=== PATIENT | female | born 1950 | race Caucasian/White ===

== ENCOUNTER 2019-03-01 07:53 | Inpatient (IN) | payer MEDICARE ==
[2019-03-01] VITALS (33 sets, daily range): BP systolic 88–139; BP diastolic 39–109; PULSE 93–120; RESP 16–29; Ht 162.6 cm; Wt 83.4 kg
[~2019-03-01] VITALS: Ht 162.6 cm; Wt 83.4 kg
[2019-03-01] MEDS ORDERED: SODIUM CHLORIDE 0.9% 1L BAG IV* STA (07:59)
--- NOTE | 2019-03-01 08:00 | ERD ---
ER Documentation Chief Complaint Chief Complaint Shortness of breath HPI 68-year-old female history of COPD, rheumatoid arthritis and recent colon resection and colostomy for perforated sigmoid diverticulitis transferred to the ED via rescue ambulance from custodial facility for evaluation of shortness of breath. Patient was recently diagnosed with urinary tract infection and started on antibiotics which she had an allergic reaction. This morning she began complaining of worsening shortness of breath was transferred to the ED for further evaluation. Patient continues to complain of dysuria and polyuria. Denies chest pain or palpitations. Denies abdominal pain, nausea or vomiting. Generalized weakness but no focal weakness or numbness. No headache or neck pain. Denies fevers or chills. ROS All systems reviewed and are negative except as per history of present illness. Medications Home Meds Reported Medications Diclofenac Sodium* (Voltaren* Gel) 1% -100 Gm Gel, 4 GM TOP TID, #1 TUB APPLY TO RIGHT AND LEFT KNEE 03/01/19 Venlafaxine Hcl* (Effexor XR*) 75 Mg Tab.er.24, 75 MG PO DAILY, TAB.SA 03/01/19 Cyclobenzaprine Hcl* (Cyclobenzaprine Hcl*) 10 Mg Tablet, 10 MG PO BID PRN for MUSCLE SPASMS, #60 TAB 03/01/19 Famotidine* (Famotidine*) 20 Mg Tablet, 20 MG PO BID, #60 TAB 03/01/19 Lactobacillus Combo No.11 (Probiotic) 1 Each Cap.sprink, 1 CAP PO DAILY, CAP 03/01/19 Amphet Vdf-Jlbptn-C-Amphet (Adderall) 5 Mg Tablet, 5 MG PO DAILY, TAB MAY TAKE ANOTHE 5MG PRN PER PT REQUEST 03/01/19 Acetaminophen* (Acetaminophen*) 650 Mg Tablet, 650 MG PO Q4 PRN for PAIN LEVEL 5-7, #30 TAB 03/01/19 Tramadol Hcl* (Ultram*) 50 Mg Tablet, 50 MG PO Q6H PRN for PAIN LEVEL 5-7, TAB 03/01/19 Hydrocodone/Acetaminophen (Orient 5-325 Tablet) 1 Each Tablet, 1 EACH PO Q4 PRN for PAIN LEVEL 8-10, TAB 03/01/19 Magnesium Hydroxide* (Milk Of Magnesia*) 400 Mg/5 Ml Oral.susp, 30 ML PO DAILY PRN for CONSTIPATION, ML 03/01/19 Alprazolam* (Xanax*) 0.5 Mg Tab, 0.5 MG PO Q8H PRN for ANXIETY, TAB 03/01/19 Sennosides* (Senna Lax*) 8.6 Mg Tablet, 1 TAB PO DAILY, TAB 03/01/19 Heparin Sodium,Porcine/Pf (HEPARIN SOD 5,000 UNIT/ 0.5 ML) 5,000 Unit/0.5 Ml Vial, 5000 UNIT IJ Q8, VIAL 03/01/19 Oxycodone Hcl* (Oxycontin*) 20 Mg Tab.er.12h, 20 MG PO Q8 PRN for PAIN, TAB 03/01/19 Tolterodine Tartrate* (Detrol LA*) 4 Mg Cap.sr.24h, 4 MG PO DAILY, #30 CAP 03/01/19 Prednisone* (Prednisone*) 10 Mg Tab, 15 MG PO DAILY, TAB 03/01/19 Albuterol Sulfate* (Proair HFA*) 8.5 Gm Hfa.aer.ad, 2 PUFF INH Q4H PRN for W HEEZING AND SOB, #1 INHALER 03/01/19 Docusate Sodium* (Colace*) 100 Mg Capsule, 100 MG PO DAILY, #30 CAP 03/01/19 Allergies Allergies: Coded Allergies: sulfasalazine (Verified Allergy, Severe, 03/01/19) PMhx/Soc Reviewed in chart as per HPI History of Surgery: Yes Anesthesia Reaction: No (Colon resection for perforated diverticulitis) Hx Neurological Disorder: No Hx Respiratory Disorders: Yes (COPD) Hx Cardiac Disorders: Yes Hx Psychiatric Problems: No (Hypertension) Hx Miscellaneous Medical Probl: Yes (Rheumatoid arthritis on chronic immunosuppression) Hx Alcohol Use: No Hx Substance Use: No Hx Tobacco Use: No FmHx No family history relevant to presenting complaint Physical Exam Vitals Temp: 99.1. Pulse: 132. Respirations: 28. Blood pressure 118/97. O2 saturation 100% on 2 L. Physical Exam Const: Severe distress. Ill-appearing. Head: Atraumatic Eyes: Normal Conjunctiva ENT: Normal External Ears, Nose and Mouth. Neck: Full range of motion. No meningismus. No JVD Resp: Breath sounds mildly diminished at the bases but clear to auscultation bilaterally without rales rhonchi or wheezes Cardio: Regular rate and rhythm, no murmurs Abd: Soft, obese, non tender, non distended. No rebound or guarding. Normal bowel sounds. Colostomy site clean without erythema or drainage. Mucosa pink. Skin: Mottled on the extremities. Back: No midline or flank tenderness Ext: No cyanosis, or edema Neur: Awake and alert. Cranial nerves are grossly intact. No focal deficit. Psych: Normal Mood and Affect Results 24 hrs Laboratory Tests Test 03/01/19 08:19 03/01/19 08:26 03/01/19 08:45 03/01/19 11:24 POC Venous Lactate 6.7 mmol/L 3.7 mmol/L White Blood Count 13.9 10^3/ul Red Blood Count 6.77 10^6/ul Hemoglobin 17.6 g/dl Hematocrit 58.7 % Mean Corpuscular 86.7 fl Volume Mean Corpuscular 26.0 pg Hemoglobin Mean Corpuscular 30.0 g/dl Hemoglobin Concent Red Cell 20.1 % Distribution Width Platelet Count 369 10^3/UL Mean Platelet 9.7 fl Volume Immature 3.000 % Granulocytes % Neutrophils % % Segmented 44 % Neutrophils % (Manual) Band Neutrophils % 46 % (Manual) Lymphocytes % % Lymphocytes % 2 % (Manual) Monocytes % % Monocytes % 4 % (Manual) Eosinophils % % Eosinophils % 3 % (Manual) Basophils % % Metamyelocytes % 1 % (manual) Nucleated Red Blood 0.3 /100WBC Cells % Immature 0.420 10^3/ul Granulocytes # Neutrophils # 10^3/ul Neutrophils # 7.0 10^3/ul (Manual) Band Neutrophils # 6.3 10^3/ul Lymphocytes 0.2 10^3/ul (Manual) Lymphocytes # 10^3/ul Monocytes # 10^3/ul Monocytes # 0.5 10^3/ul (Manual) Eosinophils # 10^3/ul Basophils # 10^3/ul Metamyelocytes # 0.1 10^3/ul Nucleated Red Blood 10^3/ul Cells # Platelet Estimate NORMAL Giant Platelets 2 % Polychromasia 1+ Poikilocytosis 2+ Anisocytosis 1+ Prothrombin Time 14.1 Sec Prothrombin Time 1.1 Ratio INR International 1.08 Normalized Ratio Activated 34.2 Sec Partial Thromboplas t Time Sodium Level 136 mmol/L Potassium Level 4.7 mmol/L Chloride Level 95 mmol/L Carbon Dioxide 22 mmol/L Level Anion Gap 19 Blood Urea Nitrogen 19 mg/dl Creatinine 1.33 mg/dl Est Glomerular 40 mL/min Filtrat Rate mL/min Glucose Level 116 mg/dl Calcium Level 10.1 mg/dl Total Bilirubin 0.3 mg/dl Direct Bilirubin 0.00 mg/dl Indirect Bilirubin 0.3 mg/dl Aspartate Amino 293 IU/L Transf (AST/SGOT) Alanine 192 IU/L Aminotransferase (A LT/SGPT) Alkaline 155 IU/L Phosphatase Troponin I 0.031 ng/ml Total Protein 7.8 g/dl Albumin 4.2 g/dl Globulin 3.60 g/dl Albumin/Globulin 1.16 Ratio Urine Color OTTONIEL Urine Clarity CLOUDY Urine pH 5.0 Urine Specific 1.026 [place] Urine Ketones TRACE mg/dL Urine Nitrite NEGATIVE mg/dL Urine Bilirubin NEGATIVE mg/dL Urine Urobilinogen 1+ mg/dL Urine Leukocyte 1+ Diana/ul Esterase Urine Microscopic 25 /HPF RBC Urine Microscopic 16 /HPF WBC Urine Squamous MODERATE /HPF Epithelial Cells Urine Bacteria FEW /HPF Urine Hemoglobin 1+ mg/dL Urine Glucose NEGATIVE mg/dL Urine Total Protein NEGATIVE mg/dl Current Medications Medications Dose Sig/Maksim Start Time Status Last (Trade) Ordered Route PRN Stop Time Admin Dose Reason Admin Sodium 2,550 ml BOLUS OVER 2 03/01/19 DC 03/01/19 Chloride HOURS STAT 07:59 03/01/19 08:22 (NS) IV* 08:01 Ondansetron 4 mg ONCE STAT 03/01/19 DC 03/01/19 HCl (Zofran IV 08:24 03/01/19 08:30 Inj) 08:27 Lidocaine 5 ml ONCE ONCE 03/01/19 DC (Xylocaine SC 09:30 03/01/19 1% (Mpf)) 09:31 Vancomycin 250 ml @ ONCE ONCE 03/01/19 DC 03/01/19 HCl 125 mls/hr IVPB 10:30 03/01/19 10:34 12:29 Cefepime HCl 50 ml @ ONCE STAT 03/01/19 DC 03/01/19 100 mls/hr IVPB 10:06 03/01/19 10:18 10:35 250 ml @ ONCE STAT 03/01/19 DC 03/01/19 Norepinephrin 7.5 mls/hr IV 11:24 03/02/19 11:31 e 17:37 Fentanyl 25 mcg ONCE ONCE 03/01/19 DC 03/01/19 (Sublimaze) IV 12:00 03/01/19 12:13 12:01 50 ml @ Q12H IVPB 03/01/19 DC 03/05/19 Meropenem/Sod 100 mls/hr 14:00 03/05/19 15:56 ium Chloride 18:15 Vancomycin VANCOMYCIN PER 03/01/19 DC HCl (Vanco PER PHARMACY PROTOCOL XX 12:30 03/03/19 Iv Per 07:42 Pharmacy) IV Flush 3 ml PER 03/01/19 DC (NS 3 ml) PROTOCOL IV 12:30 03/05/19 18:15 IV Flush 10 ml PRN PRN 03/01/19 DC (NS 10 ml) IV FLUSH 13:00 03/05/19 LINE 18:15 50 mg Q8 IV 03/01/19 DC 03/03/19 Hydrocortison 14:00 03/03/19 05:44 e 07:39 (Solu-Cortef) 50 mg ONCE ONCE 03/01/19 DC 03/01/19 Hydrocortison IV 13:00 03/01/19 13:03 e 13:01 (Solu-Cortef) 650 mg Q4 PRN PO 03/01/19 DC Acetaminophen PAIN LEVEL 13:00 03/05/19 (Tylenol 5-7 18:15 Tab) Famotidine 20 mg DAILY PO 03/01/19 DC 03/05/19 (Pepcid) 14:00 03/05/19 08:38 18:15 Magnesium 30 ml DAILY PRN 03/01/19 DC Hydroxide PO 13:00 03/05/19 (Milk Of Mag) CONSTIPATION 18:15 Oxycodone 20 mg Q8 PRN PO 03/01/19 DC 03/04/19 HCl SEVERE PAIN 13:00 03/04/19 03:11 (Oxycontin) 7-10 10:34 Sodium 1,000 ml @ Q10H IV 03/01/19 DC 03/03/19 Chloride 100 mls/hr 12:52 03/03/19 05:00 07:41 Oxycodone/ 1 tab Q6H PRN 03/01/19 DC 03/03/19 Acetaminophen PO .MOD PAIN 13:00 03/04/19 05:00 (Percocet 4-6 10:32 (5/ 325)) Procedures/MDM DOCUMENTS REVIEWED: ED nurse, significant prior hospital records LAB INTERPRETATION: CBC significant for leukocytosis of 13.9 with 6.3% band. Chemistry significant for elevated BUN/creatinine but no significant elect light abnormalities. Transaminitis and elevated alk phosphatase. EKG: Time: 08. Sinus tachycardia. Ventricular rate 132. Normal MI QRS. No ectopy. Left axis deviation. No acute ST segment elevation or depression. My Interpretation IMAGING: Chest AP portable: Cardiac silhouette is normal. Elevated right hemidiaphragm but the costophrenic angles are clear. No effusions or infiltrates. No abnormalities of the bony thorax. MEDICAL DECISION MAKIN-year-old female history of COPD, rheumatoid arthritis and perforated sigmoid diverticulitis transferred to the ED via rescue ambulance from custodial facility for evaluation of shortness of breath. Patient's infectious symptoms have not stabilized, and the patient is at risk of rapid decompensation. The patient will be admitted to the intensive care unit for careful hydration, antibiotic therapy, infectious source control, further evaluation and management. Severe Sepsis Criteria: Infectious source: UTI End organ damage indicated by: Lactate > 2.0 mmol/L Hypotension (SBP < 90 or >40 mmHG drop or MAP < 65) Sepsis Management: Time of recognition of severe sepsis: : Within 3 hours of recognition: Blood cultures x 2 before broad-spectrum antibiotics: Yes 30 ml/kg NS bolus Completed Initial lactate 6.7 Repeat lactate 3.7 Septic Shock Assessment: Any lactic acid > 4.0 yes Persistent hypotension (SBP < 90 or 40 mmHg drop, MAP < 65) despite 30 mL/kg IV fluid bolus: yes A focused sepsis perfusion/reperfusion reassessment examination was performed post 30ml/kg bolus @ 11:10: Temp 98.7, BP 80/49, HR 110, RR 26, Pox 100% on 2 L nasal cannula Persistent Hypotension Treatment: Comfort care No Hypotension caused by: pt. baseline, med-induced, erroneous value, condition other than infection: No Refusal by patient/decision maker for: blood draw, IVF, Antibiotics, Pressors : No Central line: PICC line placed Vasopressor started: Norepinephrine I considered further perfusion assessment with CVP measurement, SCVO2, bedside ultrasound volume assessment, passive leg raise, trial of further fluid bolus and proceeded with further fluid bolus. Accepting Care Team Current data and ongoing care discussed. Time: 11:50 Admitting Physician: Dr. Haas Critical Care Time: 45 minutes Treatments/Evaluations: Close monitoring and treatment of unstable vital signs, cardiorespiratory,and neurologic status, while maintaining tight balance of fluid, respiratory and cardiac interventions. This includes the administration of emergency fluid management while maintaining close respiratory support as well as the provision of immediate and broad-spectrum antibiotic therapy, while performing a simultaneous assessment for possible sources in order to direct targeted therapy. This time includes discussing the case with the patient and the patients family. This time also includes the consideration for invasive and chemical support to prevent cardiopulmonary collapse. This time does not include all procedures stated elsewhere in this record. This time also includes reviewing old records, labs and radiological studies. This time includes examining and re-examining the patient. Additionally, this time also includes arranging care with admitting and consulting physicians. Counseled patient regarding diagnosis, diagnostic results and plan for admission. Departure Diagnosis: Primary Impression: Shortness of breath Additional Impressions: Septic shock SIRS (systemic inflammatory response syndrome) S/P colostomy Status post colon resection Urinary tract infection Urinary tract infection type: site unspecified Hematuria presence: without hematuria Qualified Codes: N39.0 - Urinary tract infection, site not specified Condition: Critical MARTIR RAHMAN MD March 01, 2019 08:00
[2019-03-01] MEDS ORDERED: ONDANSETRON 4 MG INJ IV STA (08:24)
[2019-03-01] MEDS ORDERED: DOCU-144 PO (09:25)
[2019-03-01] MEDS ORDERED: ALBU8.5H8 INH (09:25)
[2019-03-01] MEDS ORDERED: PRED10TA PO (09:26)
[2019-03-01] MEDS ORDERED: TOLT4CAP PO (09:26)
[2019-03-01] MEDS ORDERED: OXYC20TA41 PO (09:27)
[2019-03-01] MEDS ORDERED: ALPR0.5T PO (09:28)
[2019-03-01] MEDS ORDERED: HEPA500021 IJ (09:28)
[2019-03-01] MEDS ORDERED: SENN-120 PO (09:28)
[2019-03-01] MEDS ORDERED: MAGN400O19 PO (09:29)
[2019-03-01] MEDS ORDERED: LIDOCAINE 1% (MPF) 5 ML VIAL SC ONE (09:30)
[2019-03-01] MEDS ORDERED: TRAM50TA PO (09:30)
[2019-03-01] MEDS ORDERED: HYDR-4011 PO (09:30)
[2019-03-01] MEDS ORDERED: ACET-2047 PO (09:31)
[2019-03-01] MEDS ORDERED: LACT1CAP56 PO (09:33)
[2019-03-01] MEDS ORDERED: DEXT5TAB17 PO (09:33)
[2019-03-01] MEDS ORDERED: CYCL10TA7 PO (09:34)
[2019-03-01] MEDS ORDERED: FAMO20TA18 PO (09:34)
[2019-03-01] MEDS ORDERED: VENL75TA2 PO (09:35)
[2019-03-01] MEDS ORDERED: DICL100G37 TOP (09:36)
[2019-03-01] MEDS ORDERED: CEFEPIME 2GM/50 ML (PMX) 50 ML IVPB STA (10:06)
[2019-03-01] MEDS ORDERED: VANCOMYCIN 1 GM (PMX) 250 ML IVPB ONE (10:30)
[2019-03-01] MEDS ORDERED: NORepinephrine 8MG/250 ML (PMX 250 ML IV STA (11:24)
[2019-03-01] MEDS ORDERED: FENTAnyl 50 MCG/ML VIAL IV ONE (12:00)
[2019-03-01] MEDS ORDERED: NACL 0.9% 3 ML SYG IV SCH (12:30)
[2019-03-01] MEDS ORDERED: VANCOMYCIN IV PER PHARMACY XX SCH (12:30)
[2019-03-01] MEDS ORDERED: ACETAMINOPHEN 325 MG TAB PO PRN (13:00)
[2019-03-01] MEDS ORDERED: MAGNESIUM HYDROXIDE 30ML CUP PO PRN (13:00)
[2019-03-01] MEDS ORDERED: HYDROCORTISONE 100 MG INJ IV ONE (13:00)
[2019-03-01] MEDS: SOD CHLORIDE 0.9% 1,000 ML IV SCH ×2 (13:03→22:52)
--- NOTE | 2019-03-01 13:03 | HP ---
Date/Time of Note Date/Time of Note DATE: 03/01/19 TIME: 12:57 Assessment/Plan VTE Prophylaxis SCD applied (from Nsg): Yes Pharmacological prophylaxis: heparin Lines/Catheters IV Catheter Type (from Nrsg): PICC Line Central line still needed: Yes Urinary Cath still in place: Yes Reason Cath still needed: urinary retention Assessment/Plan Hospital Course This is a 68-year-old female with a history of rheumatoid arthritis on corticosteroids and immunosuppression and recent surgery for perforated bowel with colostomy as well as recent UTI who presents with septic shock Septic shock: -Continue vasopressors to map greater than 65 -Fluids as needed -Broad-spectrum antibiotics with vancomycin and meropenem -Trend lactic acid levels -CT abdomen pelvis to evaluate for source. I presume this is a urinary tract infection in the meantime Rheumatoid arthritis: -Stress dose steroids given chronic prednisone -Pain control PRN -We will hold methotrexate Acute kidney injury: -Perhaps prerenal versus ATN we will trend this with fluids Transaminitis: -She does not have any right upper quadrant symptoms. Perhaps this is shock liver. Regardless we will see on CT abdomen pelvis whether there is biliary tract pathology present dispo: to ICU CC time 35 minutes Result Diagram: 03/01/19 0826 03/01/19 0826 Results 24hrs Laboratory Tests Test 03/01/19 08:19 03/01/19 08:26 03/01/19 08:45 03/01/19 11:24 POC Venous Lactate 6.7 *H 3.7 *H White Blood Count 13.9 H Red Blood Count 6.77 H Hemoglobin 17.6 H Hematocrit 58.7 H Mean Corpuscular Volume 86.7 Mean Corpuscular 26.0 L Hemoglobin Mean Corpuscular 30.0 L Hemoglobin Concent Red Cell Distribution 20.1 H Width Platelet Count 369 Mean Platelet Volume 9.7 Immature Granulocytes % 3.000 H Neutrophils % Segmented Neutrophils 44 % (Manual) Band Neutrophils % 46 H (Manual) Lymphocytes % Lymphocytes % (Manual) 2 L Monocytes % Monocytes % (Manual) 4 Eosinophils % Eosinophils % (Manual) 3 Basophils % Metamyelocytes % 1 H (manual) Nucleated Red Blood 0.3 H Cells % Immature Granulocytes # 0.420 H Neutrophils # Neutrophils # (Manual) 7.0 Band Neutrophils # 6.3 H Lymphocytes (Manual) 0.2 L Lymphocytes # Monocytes # Monocytes # (Manual) 0.5 Eosinophils # Basophils # Metamyelocytes # 0.1 H Nucleated Red Blood Cells # Platelet Estimate NORMAL Giant Platelets 2 H Polychromasia 1+ Poikilocytosis 2+ Anisocytosis 1+ Prothrombin Time 14.1 Prothrombin Time Ratio 1.1 INR International 1.08 Normalized Ratio Activated 34.2 Partial Thromboplast Time Sodium Level 136 Potassium Level 4.7 Chloride Level 95 L Carbon Dioxide Level 22 Anion Gap 19 H Blood Urea Nitrogen 19 Creatinine 1.33 H Est Glomerular Filtrat 40 L Rate mL/min Glucose Level 116 Calcium Level 10.1 Total Bilirubin 0.3 Direct Bilirubin 0.00 Indirect Bilirubin 0.3 Aspartate Amino 293 H Transf (AST/SGOT) Alanine 192 H Aminotransferase (ALT/SG PT) Alkaline Phosphatase 155 H Troponin I 0.031 Total Protein 7.8 Albumin 4.2 Globulin 3.60 H Albumin/Globulin Ratio 1.16 Urine Color OTTONIEL Urine Clarity CLOUDY A Urine pH 5.0 Urine Specific [place] 1.026 Urine Ketones TRACE A Urine Nitrite NEGATIVE Urine Bilirubin NEGATIVE Urine Urobilinogen 1+ H Urine Leukocyte Esterase 1+ H Urine Microscopic RBC 25 H Urine Microscopic WBC 16 H Urine Squamous MODERATE Epithelial Cells Urine Bacteria FEW A Urine Hemoglobin 1+ H Urine Glucose NEGATIVE Urine Total Protein NEGATIVE HPI/ROS Admit Date/Time Admit Date/Time Hx of Present Illness This is a 68-year-old female with a history of rheumatoid arthritis and fibromyalgia presents from [facility] with hypotension and fever Patient underwent a colostomy for perforated viscus about a month ago. She was subsequently sent to a snf facility where she has been in the meantime. About a week ago she was diagnosed with a UTI and seems to have been prescribed Levaquin. Symptoms persisted and then she was prescribed amoxicillin 2 days ago. She took a dose of this and seemed to have an allergic reaction. Still feels like she has a UTI. She then over the past day developed fever and hypotension and feeling very systemically ill. EMS was called to the [facility] where indeed she was found to be hypotensive and febrile and tachycardic and transferred to the hospital. Since arrival here she has been started on antibiotics and vasopressors via PICC line. She is alert and mentating. Feels that she has a urinary tract infection ROS Constitutional: no complaints, improved Eyes: no complaints ENT: no complaints Respiratory: no complaints Cardiovascular: no complaints Gastrointestinal: no complaints Genitourinary: no complaints Musculoskeletal: no complaints Skin: no complaints Neurologic: no complaints Endocrine: no complaints Lymphatic: no complaints Psychological: no complaints, nl mood/affect Immunologic: no complaints PMH/Family/Social Past Medical History Rheumatoid arthritis Recent colostomy for perforation Medications Current Medications Norepinephrine 250 ml @ 7.5 mls/hr ONCE STAT IV Last administered on 03/01/19at 11:31; Admin Dose 7.5 MLS/HR; Start 03/01/19 at 11:24; Stop 03/02/19 at 20:43 Meropenem/Sodium Chloride 50 ml @ 100 mls/hr Q8 IVPB ; Start 03/01/19 at 14:00; Status UNV Vancomycin HCl (Vanco Iv Per Pharmacy) VANCOMYCIN PER PHARMACY PER PROTOCOL XX ; Start 03/01/19 at 12:30; Status UNV IV Flush (NS 3 ml) 3 ml PER PROTOCOL IV ; Start 03/01/19 at 12:30; Status UNV Heparin Sodium (Porcine) (Heparin (5000 Units/1ml)) 5,000 unit Q12 SC ; Start 03/01/19 at 21:00; Status UNV IV Flush (NS 10 ml) 10 ml PRN PRN IV FLUSH LINE; Start 03/01/19 at 13:00; Status UNV Coded Allergies: sulfasalazine (Verified Allergy, Severe, 03/01/19) Past Surgical History Colostomy Past Surgical Hx: no surgical history Family History Significant Family History: no pertinent family hx Social History Alcohol Use: none Smoking Status: Never smoker Drug Use: none Exam/Review of Systems Vital Signs Vitals Vital Signs Date Temp Pulse Resp B/P (MAP) Pulse Ox O2 O2 Flow FiO2 Time Delivery Rate 03/01/19 109 28 108/74 100 Nasal 2.0 11:48 (85) Cannula 03/01/19 99.1 07:59 Exam Exam Alert comfortable appearing Bit diaphoretic and toxic appearance Tacky regular Breathing comfortably with clear lungs Abdomen soft nontender. Various laparoscopic surgical incisions. Colostomy in the left lower quadrant Extremities cool to touch with some mottling but no edema QI MCKEON MD March 01, 2019 13:02
[2019-03-01] MEDS: HYDROCORTISONE 100 MG INJ IV SCH ×2 (13:10→21:30)
[2019-03-01] MEDS: oxyCODONE (CR) 20 MG TAB [oxyCONTIN] PO PRN (13:28)
[2019-03-01] MEDS: MEROPENEM 1 GM/50ML(PMX) 50 ML IVPB SCH (13:28)
[2019-03-01] MEDS: FAMOTIDINE 20 MG TAB PO SCH (13:30)
--- NOTE | 2019-03-01 15:03 | CONS ---
DATE OF ADMISSION: 03/01/2019 DATE OF CONSULTATION: 03/01/2019 TYPE OF CONSULTATION: Infectious disease. REASON FOR CONSULTATION: Antibiotic management. HISTORY OF PRESENT ILLNESS: Ju Quijano is a 68-year-old female with history of rheumatoid arthrit is on steroids and immunosuppressants. She recently had surgery for perforated bowel with a colostom y and she had a recent UTI. She presents with septic shock. She has a PICC line in place and [place] catheter for urinary retention. On admission, her white count is 13.9, H and H of 17.6 and 58.7, patricia telet count 369,000. BUN and creatinine is 19/1.33, glucose of 166. The patient was felt to be in s eptic shock. She was placed on vasopressors for MAP greater than 65. She is also on vancomycin and meropenem with fluids as needed. On admission as noted, her white count was 13.9 with 44 polys, 46 b ands. She was on Levaquin for her urinary tract infection and was prescribed amoxicillin 2 days ago. She seemed to have an allergic reaction to this. She feels like she has UTI. She developed fever, hypotension and felt systemically ill on admission. PAST MEDICAL HISTORY: As outlined. FAMILY HISTORY: Noncontributory. SOCIAL HISTORY: She does not smoke, drink or use drugs. PAST SURGICAL HISTORY: She has a colostomy. MEDICATIONS: Per chart. ALLERGIES: NONE TO PENICILLIN. SHE IS ALLERGIC TO SULFASALAZINE. REVIEW OF SYSTEMS: Noncontributory. PHYSICAL EXAMINATION: GENERAL: The patient is awake, responsive, in no acute distress. She is slightly diaphoretic and so mewhat toxic in appearance. SKIN: Without generalized rash. HEENT: Within normal limits. NECK: Supple. LYMPH NODES: None palpable. CHEST: Decreased breath sounds at the bases. HEART: Without murmur or gallop. ABDOMEN: Soft, nontender without organosplenomegaly or masses. EXTREMITIES: Without cyanosis, clubbing or edema. RECTAL AND GENITAL: Deferred. NEUROLOGICAL: No focal neurological abnormality. MICROBIOLOGY: Obviously, her urine cultures have not been done, but her urine shows 1+ leukocyte est erase, 16 white cells per high powered field. IMAGING: Chest x-ray: No acute infiltrates, elevated right hemidiaphragm, surgical changes of the c olostomy is seen, diverticulosis is present, fibroid uterus. IMPRESSION AND PLAN: Continue on vancomycin and meropenem. Await the culture reports. I will dicta te my findings to the hospitalist. Dictated By: CASSI TERRY MD, JD/NTS Conf#: [id number] DID#: [id number] CC: QI MCKEON MD; MATTHEW MENENDEZ MD;*End*
[2019-03-01] MEDS ORDERED: SOD CHLORIDE 0.9% 1,000 ML IV ONE ×2 (17:00→18:00)
[2019-03-01] MEDS: OXYCODONE/ACETAMINOPHEN (5/325) TAB PO PRN (17:33)
[2019-03-01] MEDS ORDERED: AMIKACIN IV PER PHARMACY XX SCH (18:00)
[2019-03-01] MEDS: morphine 4 MG/ML VIAL IV PRN ×2 (18:07→23:52)
[2019-03-01] MEDS ORDERED: AMIKACIN 500 MG in SOD CHLORIDE 0.9% 100 ML IVPB SCH (19:30)
[2019-03-01] MEDS: HEPARIN 5,000 UNIT/1 ML VIAL SC SCH (21:29)
[2019-03-01] MEDS ORDERED: VANCOMYCIN HCL 1.25 GM in SOD CHLORIDE 0.9% 250 ML IVPB SCH (22:00)
--- NOTE | 2019-03-01 22:51 | RADRPT ---
Echocardiogram Report Patient Name: ALEENA HERNANDEZPatient ID: [id number] : 1950 (68y 7m)Study Date: 03/01/2019 3:23:56 PM Gender: FAccession #: [id number] Tech: Angela Galloway [facility] Location: 120 Ref.Physician: QI MCKEON Height(Cm): BSA: Weight(Kg): Quality: Technically Difficult StudyAccount #: Procedures: Echocardiographic Report: Transthoracic echocardiogram with complete 2D, M-Mode, and doppler examination. Indications: Sepsis. Measurements: 2D/M Mode Doppler Measurement Value Normal Range Measurement Value Normal Range LVIDd 2D 3.2 [ 3.8 - 5.2 ] cm AV Mean Wicho 1.6 [ 70.0 - 90.0 ] cm/sec LVIDs 2D 1.9 [ 2.2 - 3.5 ] cm AV Mean PG 13.0 [ 2.0 - 4.0 ] mmHg LVPWd 2D 1.0 [ 0.6 - 0.9 ] cm AV VTI 28.0 cm IVSd 2D 1.1 [ 0.6 - 0.9 ] cm LVOT Mean Wicho 1.1 [ 60.0 - 80.0 ] cm/sec AoR Diam 2D 2.4 [ 2.3 - 3.1 ] cm LVOT Mean PG 6.0 [ 1.0 - 3.0 ] mmHg EDV 2D 40.0 [ 46.0 - 106.0 ] ml LVOT Peak Wicho 1.8 [ 70.0 - 110.0 ] cm/sec ESV 2D 11.5 [ 14.0 - 42.0 ] ml LVOT Peak PG 13.0 [ 2.0 - 6.0 ] mmHg EF 2D 71.3 [ 54.0 - 74.0 ] percent LVOT VTI 27.3 [ 20.0 - 30.0 ] cm LA Dimen 2D 2.6 [ 2.7 - 3.8 ] cm Lat E` Wicho 0.1 [ 10.0 - 15.0 ] cm/sec Findings: Left Ventricle: Overall, hyperdynamic left ventricular systolic function. Not all segments visualized. Normal left ventricular cavity size. Mild concentric left ventricular hypertrophy. Ejection fraction is visually estimated at 70 %. Tissue Doppler/Mitral Doppler indices are consistent with impaired relaxation (Stage I diastolic dysfunction). Right Ventricle: Normal right ventricular size. Normal right ventricular systolic function. Left Atrium: The left atrium is normal in size. Right Atrium: The right atrium is normal in size. Mitral Valve: Mitral valve is not well visualized. Trace mitral regurgitation. Aortic Valve: No significant aortic stenosis or insufficiency. Aortic valve not well visualized. Tricuspid Valve: Tricuspid valve not well visualized. There is trace tricuspid regurgitation. Pulmonic Valve: Pulmonic valve not well visualized. Pericardium: Normal pericardium with no significant pericardial effusion. Aorta: Normal aortic root. IVC: Normal size and normal respiratory collapse consistent with normal right atrial pressure. Conclusions: Overall, hyperdynamic left ventricular systolic function. Not all segments visualized. Normal left ventricular cavity size. Mild concentric left ventricular hypertrophy. Ejection fraction is visually estimated at 70 %. Tissue Doppler/Mitral Doppler indices are consistent with impaired relaxation (Stage I diastolic dysfunction). Normal right ventricular size. Normal right ventricular systolic function. The left atrium is normal in size. The right atrium is normal in size. No significant valvular stenosis or regurgitation seen. Normal pericardium with no significant pericardial effusion. Electronically Signed By: Chaz Green 2019-03-01 22:50:40 PDT
[2019-03-02] VITALS (61 sets, daily range): BP systolic 75–132; BP diastolic 52–106; PULSE 71–99; RESP 15–28
[2019-03-02] MEDS: MEROPENEM 1 GM/50ML(PMX) 50 ML IVPB SCH ×2 (01:48→13:40)
[2019-03-02] MEDS: morphine 4 MG/ML VIAL IV PRN ×4 (04:06→19:34)
[2019-03-02] MEDS ORDERED: ALPRAZOLAM 0.5 MG TAB PO ONE (05:00)
[2019-03-02] MEDS: HYDROCORTISONE 100 MG INJ IV SCH ×3 (06:31→21:43)
[2019-03-02] MEDS: SOD CHLORIDE 0.9% 1,000 ML IV SCH ×2 (08:52→12:26)
[2019-03-02] MEDS ORDERED: VENLAFAXINE (XR) 75 MG CAP PO SCH (09:00)
[2019-03-02] MEDS: FAMOTIDINE 20 MG TAB PO SCH (09:23)
[2019-03-02] MEDS: HEPARIN 5,000 UNIT/1 ML VIAL SC SCH ×2 (09:25→21:05)
--- NOTE | 2019-03-02 10:55 | CONS ---
Assessment/Plan Assessment/Plan Assessment/Plan (Daily) Chest x-ray showing clear lung grajeda with elevation of right hemidiaphragm. Assessment and recommendations; 1. Patient with history of severe rheumatoid arthritis on chronic immunosuppression admitted for shock due to sepsis, etiology is unclear. CT of the abdomen pelvis is essentially unremarkable. Urine analysis is negative as well. Chest x-ray also is essentially clear. Patient however has improved significantly since admission on current antimicrobial regimen as well as low- dose Levophed. Continue current supportive care. Wean down Levophed as tolerated. Further recommendations per ID mental health consultant. Consultation Date/Type/Reason Admit Date/Time Date of Consultation: March 02, 2019 Type of Consult Pulmonary/critical care Patient is a 68-year-old lady who was transferred from rehab center after developing hypotension over there. The patient has a history of recent colostomy and according to her she was in rehab when she developed fever and became hypotensive requiring transfer to the hospital. Over here the patient has been started on fluid resuscitation as well as pressor support with significant improvement in symptoms. Patient denies any abdominal pain, any fever, any nausea vomiting. Any shortness of breath. By the time I saw her in the room, patient was laying comfortably in bed was on room air and was able to give a detailed history by herself. Past medical history; 1. History of rheumatoid arthritis. On chronic immunosuppression. On chronic steroid therapy. 2. History of recent colostomy. 3. History of recurrent UTI. Medications; reviewed. Allergies; sulfasalazine. Social history; patient has never smoked. Occupational history; noncontributory. Family history; noncontributory. Review of systems; complains of generalized aches and pains. Which is a chronic complaint. Denies any headache, visual changes, seizures, chest pain, angina, wheezing, cough or any sputum production. Denies any nausea vomiting. Compress very minimal abdominal discomfort. According to her colostomy is functioning well. Denies any melena hematochezia any orthopnea. Does complain of chronic recurrent UTI. General exam; elderly female, awake alert, laying comfortably in bed. On room air. Date/Time of Note DATE: 03/02/19 TIME: 10:50 Past Medical History Home Meds Reported Medications Diclofenac Sodium* (Voltaren* Gel) 1% -100 Gm Gel, 4 GM TOP TID, #1 TUB APPLY TO RIGHT AND LEFT KNEE 5/1/19 Venlafaxine Hcl* (Effexor XR*) 75 Mg Tab.er.24, 75 MG PO DAILY, TAB.SA 03/01/19 Cyclobenzaprine Hcl* (Cyclobenzaprine Hcl*) 10 Mg Tablet, 10 MG PO BID PRN for MUSCLE SPASMS, #60 TAB 03/01/19 Famotidine* (Famotidine*) 20 Mg Tablet, 20 MG PO BID, #60 TAB 03/01/19 Lactobacillus Combo No.11 (Probiotic) 1 Each Cap.sprink, 1 CAP PO DAILY, CAP 03/01/19 Amphet Ruy-Trtuzd-G-Amphet (Adderall) 5 Mg Tablet, 5 MG PO DAILY, TAB MAY TAKE ANOTHE 5MG PRN PER PT REQUEST 03/01/19 Acetaminophen* (Acetaminophen*) 650 Mg Tablet, 650 MG PO Q4 PRN for PAIN LEVEL 5-7, #30 TAB 03/01/19 Tramadol Hcl* (Ultram*) 50 Mg Tablet, 50 MG PO Q6H PRN for PAIN LEVEL 5-7, TAB 03/01/19 Hydrocodone/Acetaminophen ([place] 5-325 Tablet) 1 Each Tablet, 1 EACH PO Q4 PRN for PAIN LEVEL 8-10, TAB 03/01/19 Magnesium Hydroxide* (Milk Of Magnesia*) 400 Mg/5 Ml Oral.susp, 30 ML PO DAILY PRN for CONSTIPATION, ML 03/01/19 Alprazolam* (Xanax*) 0.5 Mg Tab, 0.5 MG PO Q8H PRN for ANXIETY, TAB 03/01/19 Sennosides* (Senna Lax*) 8.6 Mg Tablet, 1 TAB PO DAILY, TAB 03/01/19 Heparin Sodium,Porcine/Pf (HEPARIN SOD 5,000 UNIT/ 0.5 ML) 5,000 Unit/0.5 Ml Vial, 5000 UNIT IJ Q8, VIAL 03/01/19 Oxycodone Hcl* (Oxycontin*) 20 Mg Tab.er.12h, 20 MG PO Q8 PRN for PAIN, TAB 03/01/19 Tolterodine Tartrate* (Detrol LA*) 4 Mg Cap.sr.24h, 4 MG PO DAILY, #30 CAP 03/01/19 Prednisone* (Prednisone*) 10 Mg Tab, 15 MG PO DAILY, TAB 03/01/19 Albuterol Sulfate* (Proair HFA*) 8.5 Gm Hfa.aer.ad, 2 PUFF INH Q4H PRN for WHEEZING AND SOB, #1 INHALER 03/01/19 Docusate Sodium* (Colace*) 100 Mg Capsule, 100 MG PO DAILY, #30 CAP 03/01/19 Medications Current Medications Norepinephrine 250 ml @ 7.5 mls/hr ONCE STAT IV Last administered on 03/01/19at 11:31; Admin Dose 7.5 MLS/HR; Start 03/01/19 at 11:24; Stop 03/02/19 at 20:43 Meropenem/Sodium Chloride 50 ml @ 100 mls/hr Q12H IVPB Last administered on 03/02/19at 01:48; Admin Dose 100 MLS/HR; Start 03/01/19 at 14:00 Vancomycin HCl (Vanco Iv Per Pharmacy) VANCOMYCIN PER PHARMACY PER PROTOCOL XX ; Start 03/01/19 at 12:30 IV Flush (NS 3 ml) 3 ml PER PROTOCOL IV ; Start 03/01/19 at 12:30 Heparin Sodium (Porcine) (Heparin (5000 Units/1ml)) 5,000 unit Q12 SC Last adm inistered on 03/02/19at 09:25; Admin Dose 5,000 UNIT; Start 03/01/19 at 21:00 IV Flush (NS 10 ml) 10 ml PRN PRN IV FLUSH LINE; Start 03/01/19 at 13:00 Hydrocortisone (Solu-Cortef) 50 mg Q8 IV Last administered on 03/02/19at 06:31; Admin Dose 50 MG; Start 03/01/19 at 14:00 Acetaminophen (Tylenol Tab) 650 mg Q4 PRN PO PAIN LEVEL 5-7; Start 03/01/19 at 13:00 Famotidine (Pepcid) 20 mg DAILY PO Last administered on 03/02/19at 09:23; Admin Dose 20 MG; Start 03/01/19 at 14:00 Magnesium Hydroxide (Milk Of Mag) 30 ml DAILY PRN PO CONSTIPATION; Start 03/01/19 at 13:00 Oxycodone HCl (Oxycontin) 20 mg Q8 PRN PO SEVERE PAIN 7-10 Last administered on 03/01/19at 13:28; Admin Dose 20 MG; Start 03/01/19 at 13:00 Venlafaxine HCl (Effexor Xr) 75 mg DAILY PO Last administered on 03/02/19at 09:24; Admin Dose 75 MG; Start 03/02/19 at 09:00 Sodium Chloride 1,000 ml @ 100 mls/hr Q10H IV Last administered on 03/01/19at 22:52; Admin Dose 100 MLS/HR; Start 03/01/19 at 12:52 Oxycodone/ Acetaminophen (Percocet (5/ 325)) 1 tab Q6H PRN PO .MOD PAIN 4-6 Last administered on 03/01/19at 17:33; Admin Dose 1 TAB; Start 03/01/19 at 13:00 Vancomycin HCl 1.25 gm/Sodium Chloride 250 ml @ 83.333 mls/ hr Q24H IVPB Last administered on 03/01/19at 22:52; Admin Dose 83.333 MLS/HR; Start 03/01/19 at 22:00 Morphine Sulfate (morphine) 2 mg Q4H PRN IV SEVERE PAIN LEVEL 7-10 Last administered on 03/02/19at 09:38; Admin Dose 2 MG; Start 03/01/19 at 18:00 Amikacin Sulfate (Amikacin Iv Per Pharmacy) AMIKACIN PER PHARM... NOTE XX ; Start 03/01/19 at 18:00 Allergies: Coded Allergies: sulfasalazine (Verified Allergy, Severe, 03/01/19) Past Surgical History Past Surgical Hx: no surgical history Social History Alcohol Use: none Smoking Status: Never smoker Drug Use: none Exam/Review of Systems Exam Vitals Vital Signs Date Temp Pulse Resp B/P (MAP) Pulse Ox O2 O2 Flow FiO2 Time Delivery Rate 03/02/19 86 20 108/65 06:30 (79) 03/02/19 94 06:15 03/02/19 100.1 04:00 03/01/19 Nasal 2.0 20:00 Cannula Intake and Output 03/01/19 03/01/19 03/02/19 1515:00 23:00 07:00 IntakeIntake Total 3773 ml 1333 ml OutputOutput Total 635 ml 510 ml BalanceBalance 3138 ml 823 ml Exam H EENT exam; supple neck, no JVD. No lymphadenopathy. Midline trachea. No thyromegaly. Patient has a facial edema. Dentition is fair. No neck masses. Chest exam; diminished breath sounds bilaterally. No added sounds. S1-S2 audible, no murmurs. Regular rhythm. Abdomen exam; soft, nontender. Left lower colostomy in place. Bowel sounds are audible. There is a well- healed laparotomy scar. Extremity exam; trace edema. Patient does have mild rheumatoid arthritis changes. [employer] O[employer]ATOR exam; no focal deficit. Results Result Diagram: 03/02/19 0454 03/02/19 0454 Results 24hrs Laboratory Tests Test 03/01/19 11:24 03/01/19 15:46 03/02/19 04:54 POC Venous Lactate 3.7 *H Lactic Acid Level 5.2 *H White Blood Count 11.3 H Red Blood Count 4.84 # Hemoglobin 12.7 # Hematocrit 41.3 # Mean Corpuscular Volume 85.3 Mean Corpuscular Hemoglobin 26.2 L Mean Corpuscular Hemoglobin Concent 30.8 L Red Cell Distribution Width 19.0 H Platelet Count 199 # Mean Platelet Volume 10.4 Immature Granulocytes % 1.600 H Neutrophils % Segmented Neutrophils % (Manual) 64 Band Neutrophils % (Manual) 24 H Lymphocytes % Lymphocytes % (Manual) 6 L Reactive Lymphocytes % (Manual) 1 H Monocytes % Monocytes % (Manual) 2 Eosinophils % Eosinophils % (Manual) 2 Basophils % Metamyelocytes % (manual) 1 H Nucleated Red Blood Cells % 0.0 Immature Granulocytes # 0.180 H Neutrophils # Neutrophils # (Manual) 7.5 Band Neutrophils # 2.7 H Lymphocytes (Manual) 0.6 L Lymphocytes # Reactive Lymphocytes # 0.1 H Monocytes # Monocytes # (Manual) 0.2 L Eosinophils # Basophils # Metamyelocytes # 0.1 H Nucleated Red Blood Cells # Platelet Estimate NORMAL Giant Platelets 1 H Polychromasia 1+ Poikilocytosis 2+ Anisocytosis 1+ Spherocytes 1+ Sodium Level 136 Potassium Level 4.4 Chloride Level 110 # Carbon Dioxide Level 18 L Anion Gap 8 # Blood Urea Nitrogen 17 Creatinine 0.64 Est Glomerular Filtrat Rate mL/min > 60 Glucose Level 109 Hemoglobin A1c 6.3 H Calcium Level 7.3 L Total Bilirubin 0.1 L Direct Bilirubin 0.00 Indirect Bilirubin 0.1 Aspartate Amino Transf (AST/SGOT) 103 H Alanine Aminotransferase (ALT/SGPT) 130 H Alkaline Phosphatase 99 Total Protein 4.9 #L Albumin 2.2 #L Globulin 2.70 Albumin/Globulin Ratio 0.81 Medications Medication Current Medications Norepinephrine 250 ml @ 7.5 mls/hr ONCE STAT IV Last administered on 03/01/19at 11:31; Admin Dose 7.5 MLS/HR; Start 03/01/19 at 11:24; Stop 03/02/19 at 20:43 Meropenem/Sodium Chloride 50 ml @ 100 mls/hr Q12H IVPB Last administered on 03/02/19at 01:48; Admin Dose 100 MLS/HR; Start 03/01/19 at 14:00 Vancomycin HCl (Vanco Iv Per Pharmacy) VANCOMYCIN PER PHARMACY PER PROTOCOL XX ; Start 03/01/19 at 12:30 IV Flush (NS 3 ml) 3 ml PER PROTOCOL IV ; Start 03/01/19 at 12:30 Heparin Sodium (Porcine) (Heparin (5000 Units/1ml)) 5,000 unit Q12 SC Last administered on 03/02/19at 09:25; Admin Dose 5,000 UNIT; Start 03/01/19 at 21:00 IV Flush (NS 10 ml) 10 ml PRN PRN IV FLUSH LINE; Start 03/01/19 at 13:00 Hydrocortisone (Solu-Cortef) 50 mg Q8 IV Last administered on 03/02/19at 06:31; Admin Dose 50 MG; Start 03/01/19 at 14:00 Acetaminophen (Tylenol Tab) 650 mg Q4 PRN PO PAIN LEVEL 5-7; Start 03/01/19 at 13:00 Famotidine (Pepcid) 20 mg DAILY PO Last administered on 03/02/19at 09:23; Admin Dose 20 MG; Start 03/01/19 at 14:00 Magnesium Hydroxide (Milk Of Mag) 30 ml DAILY PRN PO CONSTIPATION; Start 03/01/19 at 13:00 Oxycodone HCl (Oxycontin) 20 mg Q8 PRN PO SEVERE PAIN 7-10 Last administered on 03/01/19at 13:28; Admin Dose 20 MG; Start 03/01/19 at 13:00 Venlafaxine HCl (Effexor Xr) 75 mg DAILY PO Last administered on 03/02/19at 09:24; Admin Dose 75 MG; Start 03/02/19 at 09:00 Sodium Chloride 1,000 ml @ 100 mls/hr Q10H IV Last administered on 03/01/19at 22:52; Admin Dose 100 MLS/HR; Start 03/01/19 at 12:52 Oxycodone/ Acetaminophen (Percocet (5/ 325)) 1 tab Q6H PRN PO .MOD PAIN 4-6 Last administered on 03/01/19at 17:33; Admin Dose 1 TAB; Start 03/01/19 at 13:00 Vancomycin HCl 1.25 gm/Sodium Chloride 250 ml @ 83.333 mls/ hr Q24H IVPB Last administered on 03/01/19at 22:52; Admin Dose 83.333 MLS/HR; Start 03/01/19 at 22:00 Morphine Sulfate (morphine) 2 mg Q4H PRN IV SEVERE PAIN LEVEL 7-10 Last administered on 03/02/19at 09:38; Admin Dose 2 MG; Start 03/01/19 at 18:00 Amikacin Sulfate (Amikacin Iv Per Pharmacy) AMIKACIN PER PHARM... NOTE XX ; Start 03/01/19 at 18:00 THUAN SAAVEDRA March 02, 2019 10:55
[2019-03-02] MEDS: VANCOMYCIN 1 GM 250 ML IVPB SCH (12:18)
--- NOTE | 2019-03-02 12:58 | PN ---
Date/Time of Note Date/Time of Note DATE: 03/02/19 TIME: 12:55 Assessment/Plan VTE Prophylaxis Risk score (from Nsg)>0 risk: 11 SCD applied (from Nsg): Yes Pharmacological prophylaxis: heparin Lines/Catheters IV Catheter Type (from Nrsg): PICC Line Central line still needed: Yes Urinary Cath still in place: Yes Reason Cath still needed: urinary retention Assessment/Plan Hospital Course EXAM: Alert, Ox3 Comfortable appearing Erytheamtous rash across b/l cheeks Papules across upper back Breathing comfortably RRR Soft nt nd Colostomy in place Legs no longer mottled, warm now This is a 68-year-old female with a history of rheumatoid arthritis on corticosteroids and immunosuppression and recent surgery for perforated bowel with colostomy as well as recent UTI who presents with septic shock Sepsis: - Shock resolved, weaned off of levophed -Fluids as needed -Broad-spectrum antibiotics with vancomycin and meropenem, await cultures. So urce unclear -Trend lactic acid levels -CT abdomen pelvis wihtout acute pathology. I presume this is a urinary tract infection in the meantime Rheumatoid arthritis: -Stress dose steroids given chronic prednisone -Pain control PRN -We will hold methotrexate Acute kidney injury: - Resolved with fluids Transaminitis: -She does not have any right upper quadrant symptoms. Likely shock liver. No p athology on CT A/P dispo: to ICU CC time 35 minutes Result Diagram: 03/02/19 0454 03/02/19 0454 Results 24hrs Laboratory Tests Test 03/01/19 15:46 03/02/19 04:54 Lactic Acid Level 5.2 *H White Blood Count 11.3 H Red Blood Count 4.84 # Hemoglobin 12.7 # Hematocrit 41.3 # Mean Corpuscular Volume 85.3 Mean Corpuscular Hemoglobin 26.2 L Mean Corpuscular Hemoglobin Concent 30.8 L Red Cell Distribution Width 19.0 H Platelet Count 199 # Mean Platelet Volume 10.4 Immature Granulocytes % 1.600 H Neutrophils % Segmented Neutrophils % (Manual) 64 Band Neutrophils % (Manual) 24 H Lymphocytes % Lymphocytes % (Manual) 6 L Reactive Lymphocytes % (Manual) 1 H Monocytes % Monocytes % (Manual) 2 Eosinophils % Eosinophils % (Manual) 2 Basophils % Metamyelocytes % (manual) 1 H Nucleated Red Blood Cells % 0.0 Immature Granulocytes # 0.180 H Neutrophils # Neutrophils # (Manual) 7.5 Band Neutrophils # 2.7 H Lymphocytes (Manual) 0.6 L Lymphocytes # Reactive Lymphocytes # 0.1 H Monocytes # Monocytes # (Manual) 0.2 L Eosinophils # Basophils # Metamyelocytes # 0.1 H Nucleated Red Blood Cells # Platelet Estimate NORMAL Giant Platelets 1 H Polychromasia 1+ Poikilocytosis 2+ Anisocytosis 1+ Spherocytes 1+ Sodium Level 136 Potassium Level 4.4 Chloride Level 110 # Carbon Dioxide Level 18 L Anion Gap 8 # Blood Urea Nitrogen 17 Creatinine 0.64 Est Glomerular Filtrat Rate mL/min > 60 Glucose Level 109 Hemoglobin A1c 6.3 H Calcium Level 7.3 L Total Bilirubin 0.1 L Direct Bilirubin 0.00 Indirect Bilirubin 0.1 Aspartate Amino Transf (AST/SGOT) 103 H Alanine Aminotransferase (ALT/SGPT) 130 H Alkaline Phosphatase 99 Total Protein 4.9 #L Albumin 2.2 #L Globulin 2.70 Albumin/Globulin Ratio 0.81 Subjective 24 Hr Interval Summary Free Text/Dictation Hemodynamics improved, able to be weaned off of pressors JUVE resolved Feels well wihtout focal pain. Major complaint is of urinary incontinence New rash on face Exam/Review of Systems Exam Vitals Vital Signs Date Temp Pulse Resp B/P (MAP) Pulse Ox O2 O2 Flow FiO2 Time Delivery Rate 03/02/19 93 20 93/61 (72) 96 10:30 03/02/19 Room Air 10:00 03/02/19 98.5 08:00 03/01/19 2.0 20:00 Intake and Output 03/01/19 03/01/19 03/02/19 1414:59 22:59 06:59 IntakeIntake Total 3649 ml 1357 ml OutputOutput Total 575 ml 570 ml BalanceBalance 3074 ml 787 ml Results Results 24hrs Laboratory Tests Test 03/01/19 15:46 03/02/19 04:54 Lactic Acid Level 5.2 *H White Blood Count 11.3 H Red Blood Count 4.84 # Hemoglobin 12.7 # Hematocrit 41.3 # Mean Corpuscular Volume 85.3 Mean Corpuscular Hemoglobin 26.2 L Mean Corpuscular Hemoglobin Concent 30.8 L Red Cell Distribution Width 19.0 H Platelet Count 199 # Mean Platelet Volume 10.4 Immature Granulocytes % 1.600 H Neutrophils % Segmented Neutrophils % (Manual) 64 Band Neutrophils % (Manual) 24 H Lymphocytes % Lymphocytes % (Manual) 6 L Reactive Lymphocytes % (Manual) 1 H Monocytes % Monocytes % (Manual) 2 Eosinophils % Eosinophils % (Manual) 2 Basophils % Metamyelocytes % (manual) 1 H Nucleated Red Blood Cells % 0.0 Immature Granulocytes # 0.180 H Neutrophils # Neutrophils # (Manual) 7.5 Band Neutrophils # 2.7 H Lymphocytes (Manual) 0.6 L Lymphocytes # Reactive Lymphocytes # 0.1 H Monocytes # Monocytes # (Manual) 0.2 L Eosinophils # Basophils # Metamyelocytes # 0.1 H Nucleated Red Blood Cells # Platelet Estimate NORMAL Giant Platelets 1 H Polychromasia 1+ Poikilocytosis 2+ Anisocytosis 1+ Spherocytes 1+ Sodium Level 136 Potassium Level 4.4 Chloride Level 110 # Carbon Dioxide Level 18 L Anion Gap 8 # Blood Urea Nitrogen 17 Creatinine 0.64 Est Glomerular Filtrat Rate mL/min > 60 Glucose Level 109 Hemoglobin A1c 6.3 H Calcium Level 7.3 L Total Bilirubin 0.1 L Direct Bilirubin 0.00 Indirect Bilirubin 0.1 Aspartate Amino Transf (AST/SGOT) 103 H Alanine Aminotransferase (ALT/SGPT) 130 H Alkaline Phosphatase 99 Total Protein 4.9 #L Albumin 2.2 #L Globulin 2.70 Albumin/Globulin Ratio 0.81 Medications Medication Current Medications Norepinephrine 250 ml @ 7.5 mls/hr ONCE STAT IV Last administered on 03/01/19at 11:31; Admin Dose 7.5 MLS/HR; Start 03/01/19 at 11:24; Stop 03/02/19 at 20:43 Meropenem/Sodium Chloride 50 ml @ 100 mls/hr Q12H IVPB Last administered on 03/02/19at 01:48; Admin Dose 100 MLS/HR; Start 03/01/19 at 14:00 Vancomycin HCl (Vanco Iv Per Pharmacy) VANCOMYCIN PER PHARMACY PER PROTOCOL XX ; Start 03/01/19 at 12:30 IV Flush (NS 3 ml) 3 ml PER PROTOCOL IV ; Start 03/01/19 at 12:30 Heparin Sodium (Porcine) (Heparin (5000 Units/1ml)) 5,000 unit Q12 SC Last administered on 03/02/19at 09:25; Admin Dose 5,000 UNIT; Start 03/01/19 at 21:00 IV Flush (NS 10 ml) 10 ml PRN PRN IV FLUSH LINE; Start 03/01/19 at 13:00 Hydrocortisone (Solu-Cortef) 50 mg Q8 IV Last administered on 03/02/19 06:31; Admin Dose 50 MG; Start 03/01/19 at 14:00 Acetaminophen (Tylenol Tab) 650 mg Q4 PRN PO PAIN LEVEL 5-7; Start 03/01/19 at 13:00 Famotidine (Pepcid) 20 mg DAILY PO Last administered on 03/02/19 09:23; Admin Dose 20 MG; Start 03/01/19 at 14:00 Magnesium Hydroxide (Milk Of Mag) 30 ml DAILY PRN PO CONSTIPATION; Start 03/01/19 at 13:00 Oxycodone HCl (Oxycontin) 20 mg Q8 PRN PO SEVERE PAIN 7-10 Last administered on 03/01/19 13:28; Admin Dose 20 MG; Start 03/01/19 at 13:00 Venlafaxine HCl (Effexor Xr) 75 mg DAILY PO Last administered on 03/02/19 09:24; Admin Dose 75 MG; Start 03/02/19 at 09:00 Sodium Chloride 1,000 ml @ 100 mls/hr Q10H IV Last administered on 03/02/19 12:26; Admin Dose 100 MLS/HR; Start 03/01/19 at 12:52 Oxycodone/ Acetaminophen (Percocet (5/ 325)) 1 tab Q6H PRN PO .MOD PAIN 4-6 Last administered on 03/01/19 17:33; Admin Dose 1 TAB; Start 03/01/19 at 13:00 Morphine Sulfate (morphine) 2 mg Q4H PRN IV SEVERE PAIN LEVEL 7-10 Last ad ministered on 03/02/19 09:38; Admin Dose 2 MG; Start 03/01/19 at 18:00 Vancomycin HCl 250 ml @ 125 mls/hr Q12H IVPB Last administered on 03/02/19 12:18; Admin Dose 125 MLS/HR; Start 03/02/19 at 13:00 QI MCKEON MD March 02, 2019 12:58
--- NOTE | 2019-03-02 14:48 | CONS ---
Assessment/Plan Assessment/Plan Hospital Course (Demo Recall) Patient is off present since this morning she is awake looks comfortable denies pain. T-max 100.2. T-current 98.5. WBC 11.3 H&H 12.7 and 41.3 platelets 199 neutrophils 64 bands 24 BUN 17 creatinine 0.64 lactic acid yesterday 5.2 Microbiology: Blood and urine cultures negative CT abdomen and pelvis on admission revealed surgical changes of colostomy with mild inflammation of the colon at the colostomy site without proximal obstruction or appendicitis. Positive diverticulosis. Please see full report in the chart Indwelling: Colostomy, PICC line, [place] catheter Antimicrobials: Vancomycin, Merrem Physical examination: Well-developed very pleasant chronically ill-appearing obese elderly woman who is alert in no distress. Head atraumatic normocephalic sclera nonicteric. Neck is supple chest rise symmetrical breath sounds diminished to bases. Heart: S1-S2. Abdomen soft bowel sounds present, colostomy present. Bilateral lower extremities wasted with mild erythema below knees right more than left Assessment: 1. Severe sepsis status post shock likely secondary to UTI 2. Right lower extremity cellulitis 3. Rheumatoid arthritis, on immunosuppressive therapy 4. Status post perforated bowel repair with colostomy Plan: Patient is doing better her urinalysis on admission was positive for leukocyte esterase, she is on appropriate broad-spectrum coverage which we will continue for now Consultation Date/Type/Reason Admit Date/Time March 01, 2019 at 14:21 Initial Consult Date 03/02/19 Type of Consult id Date/Time of Note DATE: 03/02/19 TIME: 14:43 Exam/Review of Systems Exam Vitals Vital Signs Date Temp Pulse Resp B/P (MAP) Pulse Ox O2 O2 Flow FiO2 Time Delivery Rate 03/02/19 83 18 92/59 (70) 93 Room Air 13:00 03/02/19 98.5 08:00 03/01/19 2.0 20:00 Intake and Output 03/01/19 03/01/19 03/02/19 1515:00 23:00 07:00 IntakeIntake Total 3773 ml 1333 ml OutputOutput Total 635 ml 585 ml BalanceBalance 3138 ml 748 ml Results Result Diagram: 03/02/19 0454 03/02/19 0454 Results 24hrs Laboratory Tests Test 03/01/19 15:46 03/02/19 04:54 Lactic Acid Level 5.2 *H White Blood Count 11.3 H Red Blood Count 4.84 # Hemoglobin 12.7 # Hematocrit 41.3 # Mean Corpuscular Volume 85.3 Mean Corpuscular Hemoglobin 26.2 L Mean Corpuscular Hemoglobin Concent 30.8 L Red Cell Distribution Width 19.0 H Platelet Count 199 # Mean Platelet Volume 10.4 Immature Granulocytes % 1.600 H Neutrophils % Segmented Neutrophils % (Manual) 64 Band Neutrophils % (Manual) 24 H Lymphocytes % Lymphocytes % (Manual) 6 L Reactive Lymphocytes % (Manual) 1 H Monocytes % Monocytes % (Manual) 2 Eosinophils % Eosinophils % (Manual) 2 Basophils % Metamyelocytes % (manual) 1 H Nucleated Red Blood Cells % 0.0 Immature Granulocytes # 0.180 H Neutrophils # Neutrophils # (Manual) 7.5 Band Neutrophils # 2.7 H Lymphocytes (Manual) 0.6 L Lymphocytes # Reactive Lymphocytes # 0.1 H Monocytes # Monocytes # (Manual) 0.2 L Eosinophils # Basophils # Metamyelocytes # 0.1 H Nucleated Red Blood Cells # Platelet Estimate NORMAL Giant Platelets 1 H Polychromasia 1+ Poikilocytosis 2+ Anisocytosis 1+ Spherocytes 1+ Sodium Level 136 Potassium Level 4.4 Chloride Level 110 # Carbon Dioxide Level 18 L Anion Gap 8 # Blood Urea Nitrogen 17 Creatinine 0.64 Est Glomerular Filtrat Rate mL/min > 60 Glucose Level 109 Hemoglobin A1c 6.3 H Calcium Level 7.3 L Total Bilirubin 0.1 L Direct Bilirubin 0.00 Indirect Bilirubin 0.1 Aspartate Amino Transf (AST/SGOT) 103 H Alanine Aminotransferase (ALT/SGPT) 130 H Alkaline Phosphatase 99 Total Protein 4.9 #L Albumin 2.2 #L Globulin 2.70 Albumin/Globulin Ratio 0.81 Medications Medication Current Medications Norepinephrine 250 ml @ 7.5 mls/hr ONCE STAT IV Last administered on 03/01/19at 11:31; Admin Dose 7.5 MLS/HR; Start 03/01/19 at 11:24; Stop 03/02/19 at 20:43 Meropenem/Sodium Chloride 50 ml @ 100 mls/hr Q12H IVPB Last administered on at 13:40; Admin Dose 100 MLS/HR; Start 03/01/19 at 14:00 Vancomycin HCl (Vanco Iv Per Pharmacy) VANCOMYCIN PER PHARMACY PER PROTOCOL XX ; Start 03/01/19 at 12:30 IV Flush (NS 3 ml) 3 ml PER PROTOCOL IV ; Start 03/01/19 at 12:30 Heparin Sodium (Porcine) (Heparin (5000 Units/1ml)) 5,000 unit Q12 SC Last administered on 03/02/19at 09:25; Admin Dose 5,000 UNIT; Start 03/01/19 at 21:00 IV Flush (NS 10 ml) 10 ml PRN PRN IV FLUSH LINE; Start 03/01/19 at 13:00 Hydrocortisone (Solu-Cortef) 50 mg Q8 IV Last administered on 03/02/19 13:39; Admin Dose 50 MG; Start 03/01/19 at 14:00 Acetaminophen (Tylenol Tab) 650 mg Q4 PRN PO PAIN LEVEL 5-7; Start 03/01/19 at 13:00 Famotidine (Pepcid) 20 mg DAILY PO Last administered on 03/02/19 09:23; Admin Dose 20 MG; Start 03/01/19 at 14:00 Magnesium Hydroxide (Milk Of Mag) 30 ml DAILY PRN PO CONSTIPATION; Start 03/01/19 at 13:00 Oxycodone HCl (Oxycontin) 20 mg Q8 PRN PO SEVERE PAIN 7-10 Last administered on 03/01/19 13:28; Admin Dose 20 MG; Start 03/01/19 at 13:00 Venlafaxine HCl (Effexor Xr) 75 mg DAILY PO Last administered on 03/02/19 09:24; Admin Dose 75 MG; Start 03/02/19 at 09:00 Sodium Chloride 1,000 ml @ 100 mls/hr Q10H IV Last administered on 03/02/19at 12:26; Admin Dose 100 MLS/HR; Start 03/01/19 at 12:52 Oxycodone/ Acetaminophen (Percocet (5/ 325)) 1 tab Q6H PRN PO .MOD PAIN 4-6 Last administered on 03/01/19at 17:33; Admin Dose 1 TAB; Start 03/01/19 at 13:00 Morphine Sulfate (morphine) 2 mg Q4H PRN IV SEVERE PAIN LEVEL 7-10 Last administered on 03/02/19 09:38; Admin Dose 2 MG; Start 03/01/19 at 18:00 Vancomycin HCl 250 ml @ 125 mls/hr Q12H IVPB Last administered on 03/02/19at 12:18; Admin Dose 125 MLS/HR; Start 03/02/19 at 13:00 Diphenhydramine HCl (Benadryl) 25 mg ONCE ONCE IV ; Start 03/02/19 at 15:00; Stop 03/02/19 at 15:01 ROSLYN MARTÍNEZ NP March 02, 2019 14:48
[2019-03-02] MEDS ORDERED: DIPHENHYDRAMINE 50 MG INJ IV ONE (15:00)
[2019-03-02] MEDS: oxyCODONE (CR) 20 MG TAB [oxyCONTIN] PO PRN (21:49)
[2019-03-02] MEDS ORDERED: DIPHENHYDRAMINE 50 MG CAP PO PRN (22:30)
[2019-03-03] VITALS (12 sets, daily range): BP systolic 97–157; BP diastolic 52–80; PULSE 65–83; RESP 17–20
[2019-03-03] MEDS: VANCOMYCIN 1 GM 250 ML IVPB SCH (00:25)
[2019-03-03] MEDS: ALPRAZOLAM 0.5 MG TAB PO PRN ×2 (00:26→11:10)
[2019-03-03] MEDS: MEROPENEM 1 GM/50ML(PMX) 50 ML IVPB SCH ×2 (02:43→13:39)
[2019-03-03] MEDS: OXYCODONE/ACETAMINOPHEN (5/325) TAB PO PRN (05:00)
[2019-03-03] MEDS: SOD CHLORIDE 0.9% 1,000 ML IV SCH (05:00)
[2019-03-03] MEDS: HYDROCORTISONE 100 MG INJ IV SCH ×3 (05:44→22:57)
[2019-03-03] MEDS: FAMOTIDINE 20 MG TAB PO SCH (08:06)
[2019-03-03] MEDS: HEPARIN 5,000 UNIT/1 ML VIAL SC SCH ×2 (08:16→20:49)
--- NOTE | 2019-03-03 13:27 | CONS ---
Assessment/Plan Assessment/Plan Hospital Course (Demo Recall) Alert, feels good, no fevers overnight Microbiology: Blood and urine cultures negative CT abdomen and pelvis on admission revealed surgical changes of colostomy with mild inflammation of the colon at the colostomy site without proximal obstruction or appendicitis. Positive diverticulosis. Please see full report in the chart Indwelling: Colostomy, PICC line, [place] catheter Antimicrobials: Merrem Physical examination: Well-developed very pleasant chronically ill-appearing obese elderly woman who is alert in no distress. Head atraumatic normocephalic sclera nonicteric. Neck is supple chest rise symmetrical breath sounds diminished to bases. Heart: S1-S2. Abdomen soft bowel sounds present, colostomy present. Bilateral lower extremities wasted with mild erythema below knees right more than left Assessment: 1. Severe sepsis status post shock likely secondary to UTI 2. Right lower extremity cellulitis 3. Rheumatoid arthritis, on immunosuppressive therapy 4. Status post perforated bowel repair with colostomy Plan: Doing better, continue present care, abx Consultation Date/Type/Reason Admit Date/Time March 01, 2019 at 14:21 Initial Consult Date 03/02/19 Type of Consult id Date/Time of Note DATE: 03/03/19 TIME: 13:26 Exam/Review of Systems Exam Vitals Vital Signs Date Temp Pulse Resp B/P (MAP) Pulse Ox O2 O2 Flow FiO2 Time Delivery Rate 03/03/19 97.9 83 18 99/58 (72) 98 12:23 03/03/19 Room Air 07:27 03/01/19 2.0 20:00 Intake and Output 03/02/19 03/02/19 03/03/19 1515:00 23:00 07:00 IntakeIntake Total 1500 ml 930 ml 800 ml OutputOutput Total 475 ml 640 ml 550 ml BalanceBalance 1025 ml 290 ml 250 ml Results Result Diagram: 03/03/19 0450 03/03/19 0450 Results 24hrs Laboratory Tests Test 03/03/19 04:50 White Blood Count 8.2 # Red Blood Count 4.35 Hemoglobin 11.3 L Hematocrit 36.2 L Mean Corpuscular Volume 83.2 Mean Corpuscular Hemoglobin 26.0 L Mean Corpuscular Hemoglobin Concent 31.2 L Red Cell Distribution Width 18.9 H Platelet Count 154 # Mean Platelet Volume 10.7 H Immature Granulocytes % 0.900 H Neutrophils % 76.6 Lymphocytes % 12.2 L Monocytes % 8.7 Eosinophils % 1.2 Basophils % 0.4 Nucleated Red Blood Cells % 0.0 Immature Granulocytes # 0.070 H Neutrophils # 6.3 Lymphocytes # 1.0 Monocytes # 0.7 Eosinophils # 0.1 Basophils # 0.0 Nucleated Red Blood Cells # 0.0 Sodium Level 138 Potassium Level 4.0 Chloride Level 111 H Carbon Dioxide Level 24 Anion Gap 3 L Blood Urea Nitrogen 14 Creatinine 0.53 Est Glomerular Filtrat Rate mL/min > 60 Glucose Level 106 Calcium Level 7.6 L Total Bilirubin 0.1 L Direct Bilirubin 0.00 Indirect Bilirubin 0.1 Aspartate Amino Transf (AST/SGOT) 44 Alanine Aminotransferase (ALT/SGPT) 90 H Alkaline Phosphatase 76 Total Protein 4.5 L Albumin 2.1 L Globulin 2.40 Albumin/Globulin Ratio 0.87 Medications Medication Current Medications Meropenem/Sodium Chloride 50 ml @ 100 mls/hr Q12H IVPB Last administered on 03/03/19at 02:43; Admin Dose 100 MLS/HR; Start 03/01/19 at 14:00 IV Flush (NS 3 ml) 3 ml PER PROTOCOL IV ; Start 03/01/19 at 12:30 Heparin Sodium (Porcine) (Heparin (5000 Units/1ml)) 5,000 unit Q12 SC Last administered on 03/03/19at 08:16; Admin Dose 5,000 UNIT; Start 03/01/19 at 21:00 IV Flush (NS 10 ml) 10 ml PRN PRN IV FLUSH LINE; Start 03/01/19 at 13:00 Acetaminophen (Tylenol Tab) 650 mg Q4 PRN PO PAIN LEVEL 5-7; Start 03/01/19 at 13:00 Famotidine (Pepcid) 20 mg DAILY PO Last administered on 03/03/19at 08:06; Admin Dose 20 MG; Start 03/01/19 at 14:00 Magnesium Hydroxide (Milk Of Mag) 30 ml DAILY PRN PO CONSTIPATION; Start 03/01/19 at 13:00 Oxycodone HCl (Oxycontin) 20 mg Q8 PRN PO SEVERE PAIN 7-10 Last administered on 03/02/19at 21:49; Admin Dose 20 MG; Start 03/01/19 at 13:00 Oxycodone/ Acetaminophen (Percocet (5/ 325)) 1 tab Q6H PRN PO .MOD PAIN 4-6 Last administered on 03/03/19 05:00; Admin Dose 1 TAB; Start 03/01/19 at 13:00 Morphine Sulfate (morphine) 2 mg Q4H PRN IV SEVERE PAIN LEVEL 7-10 Last administered on 03/02/19 19:34; Admin Dose 2 MG; Start 03/01/19 at 18:00 Diphenhydramine HCl (Benadryl) 50 mg Q6H PRN PO ITCHING Last administered on 03/02/19at 22:12; Admin Dose 50 MG; Start 03/02/19 at 22:30 Alprazolam (Xanax) 0.5 mg TID PRN PO ANXIETY Last administered on 03/03/19 11:10; Admin Dose 0.5 MG; Start 03/02/19 at 22:30 Hydrocortisone (Solu-Cortef) 25 mg Q8 IV ; Start 03/03/19 at 14:00 ROSLYN MARTÍNEZ NP March 03, 2019 13:27
--- NOTE | 2019-03-03 14:50 | PN ---
Date/Time of Note Date/Time of Note DATE: 03/03/19 TIME: 14:49 Assessment/Plan VTE Prophylaxis Risk score (from Nsg)>0 risk: 12 SCD applied (from Nsg): Yes Pharmacological prophylaxis: heparin Lines/Catheters IV Catheter Type (from Nrsg): PICC Line Central line still needed: Yes Urinary Cath still in place: Yes Reason Cath still needed: urinary retention Assessment/Plan Hospital Course EXAM: Alert, Ox3 Comfortable appearing Erytheamtous rash across b/l cheeks Papules across upper back Breathing comfortably RRR Soft nt nd Colostomy in place Legs no longer mottled, warm now This is a 68-year-old female with a history of rheumatoid arthritis on corticosteroids and immunosuppression and recent surgery for perforated bowel with colostomy as well as recent UTI who presents with septic shock Sepsis: - Shock resolved, weaned off of levophed, HD stable - Dc vanco. Continue merrem for now -CT abdomen pelvis wihtout acute pathology. I presume this is a urinary tract infection in the meantime Rheumatoid arthritis: - Wean stress dose steroids. Patient is on chronic prednisone -Pain control PRN -We will hold methotrexate Acute kidney injury: - Resolved with fluids Transaminitis: -She does not have any right upper quadrant symptoms. Likely shock liver. No pathology on CT A/P PT/OT Dispo to [facility] Result Diagram: 03/03/19 0450 03/03/19 0450 Results 24hrs Laboratory Tests Test 03/03/19 04:50 White Blood Count 8.2 # Red Blood Count 4.35 Hemoglobin 11.3 L Hematocrit 36.2 L Mean Corpuscular Volume 83.2 Mean Corpuscular Hemoglobin 26.0 L Mean Corpuscular Hemoglobin Concent 31.2 L Red Cell Distribution Width 18.9 H Platelet Count 154 # Mean Platelet Volume 10.7 H Immature Granulocytes % 0.900 H Neutrophils % 76.6 Lymphocytes % 12.2 L Monocytes % 8.7 Eosinophils % 1.2 Basophils % 0.4 Nucleated Red Blood Cells % 0.0 Immature Granulocytes # 0.070 H Neutrophils # 6.3 Lymphocytes # 1.0 Monocytes # 0.7 Eosinophils # 0.1 Basophils # 0.0 Nucleated Red Blood Cells # 0.0 Sodium Level 138 Potassium Level 4.0 Chloride Level 111 H Carbon Dioxide Level 24 Anion Gap 3 L Blood Urea Nitrogen 14 Creatinine 0.53 Est Glomerular Filtrat Rate mL/min > 60 Glucose Level 106 Calcium Level 7.6 L Total Bilirubin 0.1 L Direct Bilirubin 0.00 Indirect Bilirubin 0.1 Aspartate Amino Transf (AST/SGOT) 44 Alanine Aminotransferase (ALT/SGPT) 90 H Alkaline Phosphatase 76 Total Protein 4.5 L Albumin 2.1 L Globulin 2.40 Albumin/Globulin Ratio 0.87 Subjective 24 Hr Interval Summary Free Text/Dictation Sepsis resolved RA pain in hands/feet Requests adderall which she takes daily Exam/Review of Systems Exam Vitals Vital Signs Date Temp Pulse Resp B/P (MAP) Pulse Ox O2 O2 Flow FiO2 Time Delivery Rate 03/03/19 97.9 83 18 99/58 (72) 98 12:23 03/03/19 Room Air 07:27 03/01/19 2.0 20:00 Intake and Output 03/02/19 03/02/19 03/03/19 1515:00 23:00 07:00 IntakeIntake Total 1500 ml 930 ml 800 ml OutputOutput Total 475 ml 640 ml 550 ml BalanceBalance 1025 ml 290 ml 250 ml Results Results 24hrs Laboratory Tests Test 03/03/19 04:50 White Blood Count 8.2 # Red Blood Count 4.35 Hemoglobin 11.3 L Hematocrit 36.2 L Mean Corpuscular Volume 83.2 Mean Corpuscular Hemoglobin 26.0 L Mean Corpuscular Hemoglobin Concent 31.2 L Red Cell Distribution Width 18.9 H Platelet Count 154 # Mean Platelet Volume 10.7 H Immature Granulocytes % 0.900 H Neutrophils % 76.6 Lymphocytes % 12.2 L Monocytes % 8.7 Eosinophils % 1.2 Basophils % 0.4 Nucleated Red Blood Cells % 0.0 Immature Granulocytes # 0.070 H Neutrophils # 6.3 Lymphocytes # 1.0 Monocytes # 0.7 Eosinophils # 0.1 Basophils # 0.0 Nucleated Red Blood Cells # 0.0 Sodium Level 138 Potassium Level 4.0 Chloride Level 111 H Carbon Dioxide Level 24 Anion Gap 3 L Blood Urea Nitrogen 14 Creatinine 0.53 Est Glomerular Filtrat Rate mL/min > 60 Glucose Level 106 Calcium Level 7.6 L Total Bilirubin 0.1 L Direct Bilirubin 0.00 Indirect Bilirubin 0.1 Aspartate Amino Transf (AST/SGOT) 44 Alanine Aminotransferase (ALT/SGPT) 90 H Alkaline Phosphatase 76 Total Protein 4.5 L Albumin 2.1 L Globulin 2.40 Albumin/Globulin Ratio 0.87 Medications Medication Current Medications Meropenem/Sodium Chloride 50 ml @ 100 mls/hr Q12H IVPB Last administered on 03/03/19 13:39; Admin Dose 100 MLS/HR; Start 03/01/19 at 14:00 IV Flush (NS 3 ml) 3 ml PER PROTOCOL IV ; Start 03/01/19 at 12:30 Heparin Sodium (Porcine) (Heparin (5000 Units/1ml)) 5,000 unit Q12 SC Last administered on 03/03/19 08:16; Admin Dose 5,000 UNIT; Start 03/01/19 at 21:00 IV Flush (NS 10 ml) 10 ml PRN PRN IV FLUSH LINE; Start 03/01/19 at 13:00 Acetaminophen (Tylenol Tab) 650 mg Q4 PRN PO PAIN LEVEL 5-7; Start 03/01/19 at 13:00 Famotidine (Pepcid) 20 mg DAILY PO Last administered on 03/03/19 08:06; Admin Dose 20 MG; Start 03/01/19 at 14:00 Magnesium Hydroxide (Milk Of Mag) 30 ml DAILY PRN PO CONSTIPATION; Start 03/01/19 at 13:00 Oxycodone HCl (Oxycontin) 20 mg Q8 PRN PO SEVERE PAIN 7-10 Last administered on 03/02/19 21:49; Admin Dose 20 MG; Start 03/01/19 at 13:00 Oxycodone/ Acetaminophen (Percocet (5/ 325)) 1 tab Q6H PRN PO .MOD PAIN 4-6 Last administered on 03/03/19 05:00; Admin Dose 1 TAB; Start 03/01/19 at 13:00 Morphine Sulfate (morphine) 2 mg Q4H PRN IV SEVERE PAIN LEVEL 7-10 Last administered on 03/02/19 19:34; Admin Dose 2 MG; Start 03/01/19 at 18:00 Diphenhydramine HCl (Benadryl) 50 mg Q6H PRN PO ITCHING Last administered on 03/02/19 22:12; Admin Dose 50 MG; Start 03/02/19 at 22:30 Alprazolam (Xanax) 0.5 mg TID PRN PO ANXIETY Last administered on 5/3/19at 11:10; Admin Dose 0.5 MG; Start 03/02/19 at 22:30 Hydrocortisone (Solu-Cortef) 25 mg Q8 IV Last administered on 03/03/19at 13:38; Admin Dose 25 MG; Start 03/03/19 at 14:00 QI MCKEON MD March 03, 2019 14:50
[2019-03-03] MEDS: METHYLPHENIDATE 5 MG TAB PO SCH (16:30)
[2019-03-03] MEDS: oxyCODONE (CR) 20 MG TAB [oxyCONTIN] PO PRN (18:02)
[2019-03-04] MEDS: MEROPENEM 1 GM/50ML(PMX) 50 ML IVPB SCH ×2 (02:02→17:36)
[2019-03-04 02:05] VITALS: BP 139/75; PULSE 80; RESP 18
[2019-03-04] MEDS: oxyCODONE (CR) 20 MG TAB [oxyCONTIN] PO PRN (03:11)
[2019-03-04] MEDS: ALPRAZOLAM 0.5 MG TAB PO PRN ×2 (04:29→22:59)
[2019-03-04] MEDS: HYDROCORTISONE 100 MG INJ IV SCH ×3 (06:06→21:15)
[2019-03-04 07:30] VITALS: BP 132/82; PULSE 84; RESP 18
[2019-03-04] MEDS: METHYLPHENIDATE 5 MG TAB PO SCH (09:00)
[2019-03-04] MEDS: FAMOTIDINE 20 MG TAB PO SCH (09:21)
[2019-03-04] MEDS: HEPARIN 5,000 UNIT/1 ML VIAL SC SCH ×2 (09:23→21:00)
[2019-03-04] MEDS ORDERED: [UNRECOGNIZED DRUG - OTHER] PO SCH ×2 (11:00→18:30)
[2019-03-04] MEDS: oxyCODONE 5 MG TAB PO SCH ×4 (11:06→23:00)
--- NOTE | 2019-03-04 14:20 | CONS ---
Assessment/Plan Assessment/Plan Hospital Course (Demo Recall) Alert, feels good, no fevers overnight Microbiology: Blood and urine cultures negative CT abdomen and pelvis on admission revealed surgical changes of colostomy with mild inflammation of the colon at the colostomy site without proximal obstruction or appendicitis. Positive diverticulosis. Please see full report in the chart Indwelling: Colostomy, PICC line, [place] catheter Antimicrobials: Merrem Physical examination: Well-developed very pleasant chronically ill-appearing obese elderly woman who is alert in no distress. Head atraumatic normocephalic sclera nonicteric. Neck is supple chest rise symmetrical breath sounds diminished to bases. Heart: S1-S2. Abdomen soft bowel sounds present, colostomy present. Bilateral lower extremities wasted with mild erythema below knees right more than left Assessment: 1. Severe sepsis status post shock secondary to a partially treated UTI 2. Right lower extremity cellulitis, resolved 3. Rheumatoid arthritis, on immunosuppressive therapy 4. Status post perforated bowel repair with colostomy Plan: Stable, okay discharge of antibiotics Consultation Date/Type/Reason Admit Date/Time March 01, 2019 at 14:21 Initial Consult Date 03/02/19 Type of Consult id Date/Time of Note DATE: 03/04/19 TIME: 14:19 Exam/Review of Systems Exam Vitals Vital Signs Date Temp Pulse Resp B/P (MAP) Pulse Ox O2 O2 Flow FiO2 Time Delivery Rate 03/04/19 97.4 84 18 132/82 96 Room Air 07:30 (99) 03/01/19 2.0 20:00 Intake and Output 03/03/19 03/03/19 03/04/19 1515:00 23:00 07:00 IntakeIntake Total 240 ml 440 ml 290 ml OutputOutput Total 150 ml BalanceBalance 240 ml 290 ml 290 ml Results Result Diagram: 03/03/19 0450 03/03/19 0450 Medications Medication Current Medications Meropenem/Sodium Chloride 50 ml @ 100 mls/hr Q12H IVPB Last administered on 03/04/19at 02:02; Admin Dose 100 MLS/HR; Start 03/01/19 at 14:00 IV Flush (NS 3 ml) 3 ml PER PROTOCOL IV ; Start 03/01/19 at 12:30 Heparin Sodium (Porcine) (Heparin (5000 Units/1ml)) 5,000 unit Q12 SC Last administered on 03/04/19 09:23; Admin Dose 5,000 UNIT; Start 03/01/19 at 21:00 IV Flush (NS 10 ml) 10 ml PRN PRN IV FLUSH LINE; Start 03/01/19 at 13:00 Acetaminophen (Tylenol Tab) 650 mg Q4 PRN PO PAIN LEVEL 5-7; Start 03/01/19 at 13:00 Famotidine (Pepcid) 20 mg DAILY PO Last administered on 03/04/19at 09:21; Admin Dose 20 MG; Start 03/01/19 at 14:00 Magnesium Hydroxide (Milk Of Mag) 30 ml DAILY PRN PO CONSTIPATION; Start at 13:00 Diphenhydramine HCl (Benadryl) 50 mg Q6H PRN PO ITCHING Last administered on 03/02/19at 22:12; Admin Dose 50 MG; Start 03/02/19 at 22:30 Alprazolam (Xanax) 0.5 mg TID PRN PO ANXIETY Last administered on 03/04/19at 04:29; Admin Dose 0.5 MG; Start 03/02/19 at 22:30 Hydrocortisone (Solu-Cortef) 25 mg Q8 IV Last administered on 03/04/19 06:06; Admin Dose 25 MG; Start 03/03/19 at 14:00 Non-Formulary Medication 1 ea BID PO ; Start 03/04/19 at 11:00 Oxycodone HCl (Roxicodone) 5 mg Q4H PO Last administered on 03/04/19at 11:06; Admin Dose 5 MG; Start 03/04/19 at 11:00 Acetaminophen/ Hydrocodone Bitart (Cable (5/325)) 1 tab Q4H PRN PO MODERATE PAIN LEVEL 4-6; Start 03/04/19 at 11:00 ROSLYN MARTÍNEZ NP March 04, 2019 14:20
[2019-03-04 15:00] VITALS: BP 133/66; PULSE 94; RESP 18
--- NOTE | 2019-03-04 15:23 | PN ---
Date/Time of Note Date/Time of Note DATE: 03/04/19 TIME: 15:22 Assessment/Plan VTE Prophylaxis Risk score (from Nsg)>0 risk: 5 SCD applied (from Nsg): Yes Pharmacological prophylaxis: heparin Lines/Catheters IV Catheter Type (from Nrsg): Saline Lock Urinary Cath still in place: Yes Reason Cath still needed: urinary retention Assessment/Plan Hospital Course EXAM: Alert, Ox3 Comfortable appearing Erytheamtous rash across b/l cheeks Papules across upper back Breathing comfortably RRR Soft nt nd Colostomy in place Legs no longer mottled, warm now This is a 68-year-old female with a history of rheumatoid arthritis on corticosteroids and immunosuppression and recent surgery for perforated bowel with colostomy as well as recent UTI who presents with septic shock Sepsis: - Shock resolved, weaned off of levophed, HD stable - Dc vanco. Continue merrem for now, dc off of abx tomorrow - CT abdomen pelvis wihtout acute pathology. I presume this is a urinary tract infection in the meantime Rheumatoid arthritis: - Wean stress dose steroids. Patient is on chronic prednisone 15 mg which I will restart tomorrow -Pain control PRN -We will hold methotrexate Acute kidney injury: - Resolved with fluids Transaminitis: -She does not have any right upper quadrant symptoms. Likely shock liver. No pathology on CT A/P PT/OT Dispo to [facility] tomorrow Result Diagram: 03/03/19 0450 03/03/19 0450 Subjective 24 Hr Interval Summary Free Text/Dictation Patient very frustrated and upset about her hospital experience. Upset not to have received adderrall and her home opiate regimen. Talked to her for 45 minutes and she calmed down Stable, sepsis resolved Exam/Review of Systems Exam Vitals Vital Signs Date Temp Pulse Resp B/P (MAP) Pulse Ox O2 O2 Flow FiO2 Time Delivery Rate 03/04/19 97.4 84 18 132/82 96 Room Air 07:30 (99) 03/01/19 2.0 20:00 Intake and Output 03/03/19 03/03/19 03/04/19 1515:00 23:00 07:00 IntakeIntake Total 240 ml 440 ml 290 ml OutputOutput Total 150 ml BalanceBalance 240 ml 290 ml 290 ml Constitutional: alert, oriented, well developed Psych: no complaints, nl mood/affect Head: normocephalic, atraumatic Eyes: nl conjunctiva, EOMI, nl lids, nl sclera, PERRL ENMT: nl external ears & nose, nl lips & teeth, nl nasal mucosa & septum Neck: supple, non-tender Respiratory: clear to auscultation, normal air movement Cardiovascular: regular rate and rhythm, nl pulses Gastrointestinal: soft, nl liver, spleen, non-tender Musculoskeletal: nl extremities to inspection, nl gait and stance Extremities: normal pulses Neurological: [employer] II-XII intact, nl mental status, nl speech, nl strength Skin: nl turgor; No rash or lesions Lymph: nl lymph nodes Medications Medication Current Medications Meropenem/Sodium Chloride 50 ml @ 100 mls/hr Q12H IVPB Last administered on 03/04/19at 02:02; Admin Dose 100 MLS/HR; Start 03/01/19 at 14:00 IV Flush (NS 3 ml) 3 ml PER PROTOCOL IV ; Start 03/01/19 at 12:30 Heparin Sodium (Porcine) (Heparin (5000 Units/1ml)) 5,000 unit Q12 SC Last administered on 03/04/19at 09:23; Admin Dose 5,000 UNIT; Start 03/01/19 at 21:00 IV Flush (NS 10 ml) 10 ml PRN PRN IV FLUSH LINE; Start 03/01/19 at 13:00 Acetaminophen (Tylenol Tab) 650 mg Q4 PRN PO PAIN LEVEL 5-7; Start 03/01/19 at 13:00 Famotidine (Pepcid) 20 mg DAILY PO Last administered on 03/04/19at 09:21; Admin Dose 20 MG; Start 03/01/19 at 14:00 Magnesium Hydroxide (Milk Of Mag) 30 ml DAILY PRN PO CONSTIPATION; Start 03/01/19 at 13:00 Diphenhydramine HCl (Benadryl) 50 mg Q6H PRN PO ITCHING Last administered on 03/02/19at 22:12; Admin Dose 50 MG; Start 03/02/19 at 22:30 Alprazolam (Xanax) 0.5 mg TID PRN PO ANXIETY Last administered on 03/04/19 04:29; Admin Dose 0.5 MG; Start 03/02/19 at 22:30 Hydrocortisone (Solu-Cortef) 25 mg Q8 IV Last administered on 03/04/19at 06:06; Admin Dose 25 MG; Start 03/03/19 at 14:00 Non-Formulary Medication 1 ea BID PO ; Start 03/04/19 at 11:00 Oxycodone HCl (Roxicodone) 5 mg Q4H PO Last administered on 03/04/19at 11:06; Admin Dose 5 MG; Start 03/04/19 at 11:00 Acetaminophen/ Hydrocodone Bitart ([place] (5/325)) 1 tab Q4H PRN PO MODERATE PAIN LEVEL 4-6; Start 03/04/19 at 11:00 QI MCKEON MD March 04, 2019 15:23
--- NOTE | 2019-03-04 17:56 | CONS ---
Consult Date/Type/Reason Admit Date/Time March 01, 2019 at 14:21 Initial Consult Date 03/02/19 Type of Consultation: Pulm Date/Time of Note DATE: 03/04/19 TIME: 17:53 Subjective Doing better. No events. Objective Vitals Vital Signs Date Temp Pulse Resp B/P (MAP) Pulse Ox O2 O2 Flow FiO2 Time Delivery Rate 03/04/19 98.2 94 18 133/66 98 Room Air 15:00 (88) 03/01/19 2.0 20:00 Intake and Output 03/03/19 03/03/19 03/04/19 1414:59 22:59 06:59 IntakeIntake Total 990 ml 440 ml 290 ml OutputOutput Total 550 ml 150 ml BalanceBalance 440 ml 290 ml 290 ml Exam HEENT: Neck supple; no JVD; no LAD CVS: RRR, S1 and S2 CHEST: Clear ABD: Soft, NT, + BS EXT: No c/c/e Results/Medications Result Diagram: 03/03/19 04503/03/19 0450 Results 24 hrs Laboratory Tests Test 03/04/19 17:47 Bedside Glucose 91 Home Meds Reported Medications Diclofenac Sodium* (Voltaren* Gel) 1% -100 Gm Gel, 4 GM TOP TID, #1 TUB APPLY TO RIGHT AND LEFT KNEE 03/01/19 Venlafaxine Hcl* (Effexor XR*) 75 Mg Tab.er.24, 75 MG PO DAILY, TAB.SA 03/01/19 Cyclobenzaprine Hcl* (Cyclobenzaprine Hcl*) 10 Mg Tablet, 10 MG PO BID PRN for MUSCLE SPASMS, #60 TAB 03/01/19 Famotidine* (Famotidine*) 20 Mg Tablet, 20 MG PO BID, #60 TAB 03/01/19 Lactobacillus Combo No.11 (Probiotic) 1 Each Cap.sprink, 1 CAP PO DAILY, CAP 03/01/19 Amphet Xpj-Mlystw-W-Amphet (Adderall) 5 Mg Tablet, 5 MG PO DAILY, TAB MAY TAKE ANOTHE 5MG PRN PER PT REQUEST 03/01/19 Acetaminophen* (Acetaminophen*) 650 Mg Tablet, 650 MG PO Q4 PRN for PAIN LEVEL 5-7, #30 TAB 03/01/19 Tramadol Hcl* (Ultram*) 50 Mg Tablet, 50 MG PO Q6H PRN for PAIN LEVEL 5-7, TAB 03/01/19 Hydrocodone/Acetaminophen ([place] 5-325 Tablet) 1 Each Tablet, 1 EACH PO Q4 PRN for PAIN LEVEL 8-10, TAB 03/01/19 Magnesium Hydroxide* (Milk Of Magnesia*) 400 Mg/5 Ml Oral.susp, 30 ML PO DAILY PRN for CONSTIPATION, ML 03/01/19 Alprazolam* (Xanax*) 0.5 Mg Tab, 0.5 MG PO Q8H PRN for ANXIETY, TAB 03/01/19 Sennosides* (Senna Lax*) 8.6 Mg Tablet, 1 TAB PO DAILY, TAB 03/01/19 Heparin Sodium,Porcine/Pf (HEPARIN SOD 5,000 UNIT/ 0.5 ML) 5,000 Unit/0.5 Ml Vial, 5000 UNIT IJ Q8, VIAL 03/01/19 Oxycodone Hcl* (Oxycontin*) 20 Mg Tab.er.12h, 20 MG PO Q8 PRN for PAIN, TAB 03/01/19 Tolterodine Tartrate* (Detrol LA*) 4 Mg Cap.sr.24h, 4 MG PO DAILY, #30 CAP 03/01/19 Prednisone* (Prednisone*) 10 Mg Tab, 15 MG PO DAILY, TAB 03/01/19 Albuterol Sulfate* (Proair HFA*) 8.5 Gm Hfa.aer.ad, 2 PUFF INH Q4H PRN for WHEEZING AND SOB, #1 INHALER 03/01/19 Docusate Sodium* (Colace*) 100 Mg Capsule, 100 MG PO DAILY, #30 CAP 03/01/19 Medications Current Medications Meropenem/Sodium Chloride 50 ml @ 100 mls/hr Q12H IVPB Last administered on 03/04/19at 17:36; Admin Dose 100 MLS/HR; Start 03/01/19 at 14:00 IV Flush (NS 3 ml) 3 ml PER PROTOCOL IV ; Start 03/01/19 at 12:30 Heparin Sodium (Porcine) (Heparin (5000 Units/1ml)) 5,000 unit Q12 SC Last administered on 03/04/19at 09:23; Admin Dose 5,000 UNIT; Start 03/01/19 at 21:00 IV Flush (NS 10 ml) 10 ml PRN PRN IV FLUSH LINE; Start 03/01/19 at 13:00 Acetaminophen (Tylenol Tab) 650 mg Q4 PRN PO PAIN LEVEL 5-7; Start 03/01/19 at 13:00 Famotidine (Pepcid) 20 mg DAILY PO Last administered on 03/04/19at 09:21; Admin Dose 20 MG; Start 03/01/19 at 14:00 Magnesium Hydroxide (Milk Of Mag) 30 ml DAILY PRN PO CONSTIPATION; Start 03/01/19 at 13:00 Diphenhydramine HCl (Benadryl) 50 mg Q6H PRN PO ITCHING Last administered on 03/02/19 22:12; Admin Dose 50 MG; Start 03/02/19 at 22:30 Alprazolam (Xanax) 0.5 mg TID PRN PO ANXIETY Last administered on 03/04/19 04:29; Admin Dose 0.5 MG; Start 03/02/19 at 22:30 Hydrocortisone (Solu-Cortef) 25 mg Q8 IV Last administered on 03/04/19at 17:36; Admin Dose 25 MG; Start 03/03/19 at 14:00 Non-Formulary Medication 1 ea BID PO ; Start 03/04/19 at 11:00 Oxycodone HCl (Roxicodone) 5 mg Q4H PO Last administered on 03/04/19at 11:06; Admin Dose 5 MG; Start 03/04/19 at 11:00 Acetaminophen/ Hydrocodone Bitart ([place] (5/325)) 1 tab Q4H PRN PO MODERATE PAIN LEVEL 4-6; Start 03/04/19 at 11:00 Assessment/Plan Assessment/Plan (Daily) IMP: 1. Septic Shock 2/2 UTI--resolved 2. Right lower extremity cellulitis, resolved 3. Rheumatoid arthritis, on immunosuppressive therapy 4. Status post perforated bowel repair with colostomy No new pulm JEANNINE Edouard MD March 04, 2019 17:56
[2019-03-04] MEDS ORDERED: SPECIAL NON-STANDARD MEDICATION PO SCH (18:00)
[2019-03-04] MEDS: LEVALBUTEROL (NEB) 0.31 MG/3 ML AMP HHN SCH ×2 (18:30→20:52)
[2019-03-04 18:37] VITALS: BP 187/82; PULSE 78; RESP 16
[2019-03-04 20:00] VITALS: BP 146/71; PULSE 81; RESP 18
[2019-03-04] MEDS: HYDROCODONE/APAP (5/325) TAB PO PRN (20:39)
[2019-03-04] MEDS: [UNRECOGNIZED DRUG - OTHER] PO SCH (20:59)
[2019-03-05] MEDS: HYDROCODONE/APAP (5/325) TAB PO PRN ×4 (00:36→15:56)
[2019-03-05] MEDS: LEVALBUTEROL (NEB) 0.31 MG/3 ML AMP HHN SCH ×5 (00:54→17:00)
[2019-03-05] MEDS: MEROPENEM 1 GM/50ML(PMX) 50 ML IVPB SCH ×2 (01:00→15:56)
[2019-03-05 02:00] VITALS: BP 162/80; PULSE 71; RESP 18
[2019-03-05] MEDS: oxyCODONE 5 MG TAB PO SCH ×4 (03:49→15:00)
[2019-03-05] MEDS: HYDROCORTISONE 100 MG INJ IV SCH ×2 (06:40→15:56)
[2019-03-05 08:06] VITALS: BP 138/86; PULSE 65; RESP 17
[2019-03-05] MEDS: FAMOTIDINE 20 MG TAB PO SCH (08:38)
[2019-03-05] MEDS: HEPARIN 5,000 UNIT/1 ML VIAL SC SCH (08:42)
[2019-03-05] MEDS: [UNRECOGNIZED DRUG - OTHER] PO SCH ×2 (12:01→15:56)
--- NOTE | 2019-03-05 12:09 | CONS ---
Consultation Date/Type/Reason Admit Date/Time March 01, 2019 at 14:21 Initial Consult Date 03/02/19 Type of Consult SUBJECTIVE: Pt is awake, alert, afebrile. VS: stable T: 98.2 LABS: Reviewed. Microbiology: Blood and urine cultures negative CT abdomen and pelvis on admission revealed surgical changes of colostomy with mild inflammation of the colon at the colostomy site without proximal obstruction or appendicitis. Positive diverticulosis. Please see full report in the chart Indwelling: Colostomy, PICC line, [place] catheter Antimicrobials: Merrem Physical examination: GEN: Well-developed very pleasant chronically ill-appearing obese elderly woman, who is alert in no distress. HENT: Head atraumatic normocephalic, sclera nonicteric. Neck is supple PULM: chest rise symmetrical breath, sounds diminished to bases. Heart: S1-S2. Abdomen: soft, bowel sounds present, colostomy present. EXTREM: Bilateral lower extremities wasted with mild erythema below knees right more than left Assessment: 1. Severe sepsis status post shock secondary to a partially treated UTI 2. Right lower extremity cellulitis, resolved 3. Rheumatoid arthritis, on immunosuppressive therapy 4. Status post perforated bowel repair with colostomy Plan: Pt is stable. Okay to discharge off of antibiotics Date/Time of Note DATE: 03/05/19 TIME: 12:06 Exam/Review of Systems Exam Vitals Vital Signs Date Temp Pulse Resp B/P (MAP) Pulse Ox O2 O2 Flow FiO2 Time Delivery Rate 03/05/19 70 20 96 21 09:42 03/05/19 98.2 138/86 Room Air 08:06 (103) 03/01/19 2.0 20:00 Intake and Output 03/04/19 03/04/19 03/05/19 1414:59 22:59 06:59 IntakeIntake Total 540 ml 500 ml 50 ml BalanceBalance 540 ml 500 ml 50 ml Results Result Diagram: 03/03/1944903/03/19 045 Results 24hrs Laboratory Tests Test 03/04/19 17:47 Bedside Glucose 91 Medications Medication Current Medications Meropenem/Sodium Chloride 50 ml @ 100 mls/hr Q12H IVPB Last administered on 03/05/19at 01:00; Admin Dose 100 MLS/HR; Start 03/01/19 at 14:00 IV Flush (NS 3 ml) 3 ml PER PROTOCOL IV ; Start 03/01/19 at 12:30 Heparin Sodium (Porcine) (Heparin (5000 Units/1ml)) 5,000 unit Q12 SC Last administered on 03/05/19 08:42; Admin Dose 5,000 UNIT; Start 03/01/19 at 21:00 IV Flush (NS 10 ml) 10 ml PRN PRN IV FLUSH LINE; Start 03/01/19 at 13:00 Acetaminophen (Tylenol Tab) 650 mg Q4 PRN PO PAIN LEVEL 5-7; Start 03/01/19 at 1 3:00 Famotidine (Pepcid) 20 mg DAILY PO Last administered on 03/05/19 08:38; Admin Dose 20 MG; Start 03/01/19 at 14:00 Magnesium Hydroxide (Milk Of Mag) 30 ml DAILY PRN PO CONSTIPATION; Start 03/01/19 at 13:00 Diphenhydramine HCl (Benadryl) 50 mg Q6H PRN PO ITCHING Last administered on 03/02/19 22:12; Admin Dose 50 MG; Start 03/02/19 at 22:30 Alprazolam (Xanax) 0.5 mg TID PRN PO ANXIETY Last administered on 03/04/19 22:59; Admin Dose 0.5 MG; Start 03/02/19 at 22:30 Hydrocortisone (Solu-Cortef) 25 mg Q8 IV Last administered on 03/05/19 06:40; Admin Dose 25 MG; Start 03/03/19 at 14:00 Oxycodone HCl (Roxicodone) 5 mg Q4H PO Last administered on 03/05/19 03:49; Admin Dose 5 MG; Start 03/04/19 at 11:00 Acetaminophen/ Hydrocodone Bitart ([place] (5/325)) 1 tab Q4H PRN PO MODERATE PAIN LEVEL 4-6 Last administered on 03/05/19 12:01; Admin Dose 1 TAB; Start 03/04/19 at 11:00 Non-Formulary Medication 0.5 ea 0900,1200 PO Last administered on 03/05/19 12:01; Admin Dose 0.5 EA; Start 03/04/19 at 18:30 Levalbuterol (Xopenex Neb) 0.31 mg Q4H RESP THERAPY HHN Last administered on 5/5/19at 09:32; Admin Dose 0.31 MG; Start 03/04/19 at 18:30 JAE BAIG March 05, 2019 12:08
--- NOTE | 2019-03-05 13:20 | CONS ---
Consult Date/Type/Reason Admit Date/Time March 01, 2019 at 14:21 Initial Consult Date 03/02/19 Type of Consultation: Pulm Date/Time of Note DATE: 03/05/19 TIME: 13:19 Subjective No events overnight. Objective Vitals Vital Signs Date Temp Pulse Resp B/P (MAP) Pulse Ox O2 O2 Flow FiO2 Time Delivery Rate 03/05/19 70 20 96 21 09:42 03/05/19 98.2 138/86 Room Air 08:06 (103) 03/01/19 2.0 20:00 Intake and Output 03/04/19 03/04/19 03/05/19 1515:00 23:00 07:00 IntakeIntake Total 540 ml 500 ml 50 ml BalanceBalance 540 ml 500 ml 50 ml Exam HEENT: Neck supple; no JVD; no LAD CVS: RRR, S1 and S2 CHEST: Clear ABD: Soft, NT, + BS EXT: No c/c/e Results/Medications Result Diagram: 03/03/1944903/03/19 045 Results 24 hrs Laboratory Tests Test 03/04/19 17:47 Bedside Glucose 91 Home Meds Reported Medications Diclofenac Sodium* (Voltaren* Gel) 1% -100 Gm Gel, 4 GM TOP TID, #1 TUB APPLY TO RIGHT AND LEFT KNEE 03/01/19 Venlafaxine Hcl* (Effexor XR*) 75 Mg Tab.er.24, 75 MG PO DAILY, TAB.SA 03/01/19 Cyclobenzaprine Hcl* (Cyclobenzaprine Hcl*) 10 Mg Tablet, 10 MG PO BID PRN for MUSCLE SPASMS, #60 TAB 03/01/19 Famotidine* (Famotidine*) 20 Mg Tablet, 20 MG PO BID, #60 TAB 03/01/19 Lactobacillus Combo No.11 (Probiotic) 1 Each Cap.sprink, 1 CAP PO DAILY, CAP 03/01/19 Amphet Wty-[place]-R-Amphet (Adderall) 5 Mg Tablet, 5 MG PO DAILY, TAB MAY TAKE ANOTHE 5MG PRN PER PT REQUEST 03/01/19 Acetaminophen* (Acetaminophen*) 650 Mg Tablet, 650 MG PO Q4 PRN for PAIN LEVEL 5 -7, #30 TAB 03/01/19 Tramadol Hcl* (Ultram*) 50 Mg Tablet, 50 MG PO Q6H PRN for PAIN LEVEL 5-7, TAB 03/01/19 Hydrocodone/Acetaminophen ([place] 5-325 Tablet) 1 Each Tablet, 1 EACH PO Q4 PRN for PAIN LEVEL 8-10, TAB 03/01/19 Magnesium Hydroxide* (Milk Of Magnesia*) 400 Mg/5 Ml Oral.susp, 30 ML PO DAILY PRN for CONSTIPATION, ML 03/01/19 Alprazolam* (Xanax*) 0.5 Mg Tab, 0.5 MG PO Q8H PRN for ANXIETY, TAB 03/01/19 Sennosides* (Senna Lax*) 8.6 Mg Tablet, 1 TAB PO DAILY, TAB 03/01/19 Heparin Sodium,Porcine/Pf (HEPARIN SOD 5,000 UNIT/ 0.5 ML) 5,000 Unit/0.5 Ml Vial, 5000 UNIT IJ Q8, VIAL 03/01/19 Oxycodone Hcl* (Oxycontin*) 20 Mg Tab.er.12h, 20 MG PO Q8 PRN for PAIN, TAB 03/01/19 Tolterodine Tartrate* (Detrol LA*) 4 Mg Cap.sr.24h, 4 MG PO DAILY, #30 CAP 03/01/19 Prednisone* (Prednisone*) 10 Mg Tab, 15 MG PO DAILY, TAB 03/01/19 Albuterol Sulfate* (Proair HFA*) 8.5 Gm Hfa.aer.ad, 2 PUFF INH Q4H PRN for WHEEZING AND SOB, #1 INHALER 03/01/19 Docusate Sodium* (Colace*) 100 Mg Capsule, 100 MG PO DAILY, #30 CAP 03/01/19 Medications Current Medications Meropenem/Sodium Chloride 50 ml @ 100 mls/hr Q12H IVPB Last administered on 03/05/19at 01:00; Admin Dose 100 MLS/HR; Start 03/01/19 at 14:00 IV Flush (NS 3 ml) 3 ml PER PROTOCOL IV ; Start 03/01/19 at 12:30 Heparin Sodium (Porcine) (Heparin (5000 Units/1ml)) 5,000 unit Q12 SC Last administered on 03/05/19at 08:42; Admin Dose 5,000 UNIT; Start 03/01/19 at 21:00 IV Flush (NS 10 ml) 10 ml PRN PRN IV FLUSH LINE; Start 03/01/19 at 13:00 Acetaminophen (Tylenol Tab) 650 mg Q4 PRN PO PAIN LEVEL 5-7; Start 03/01/19 at 13:00 Famotidine (Pepcid) 20 mg DAILY PO Last administered on 03/05/19 08:38; Admin Dose 20 MG; Start 03/01/19 at 14:00 Magnesium Hydroxide (Milk Of Mag) 30 ml DAILY PRN PO CONSTIPATION; Start 03/01/19 at 13:00 Diphenhydramine HCl (Benadryl) 50 mg Q6H PRN PO ITCHING Last administered on 03/02/19 22:12; Admin Dose 50 MG; Start 03/02/19 at 22:30 Alprazolam (Xanax) 0.5 mg TID PRN PO ANXIETY Last administered on 03/04/19 22:59; Admin Dose 0.5 MG; Start 03/02/19 at 22:30 Hydrocortisone (Solu-Cortef) 25 mg Q8 IV Last administered on 03/05/19 06:40; Admin Dose 25 MG; Start 03/03/19 at 14:00 Oxycodone HCl (Roxicodone) 5 mg Q4H PO Last administered on 03/05/19 03:49; Admin Dose 5 MG; Start 03/04/19 at 11:00 Acetaminophen/ Hydrocodone Bitart ([place] (5/325)) 1 tab Q4H PRN PO MODERATE PAIN LEVEL 4-6 Last administered on 03/05/19 12:01; Admin Dose 1 TAB; Start 03/04/19 at 11:00 Non-Formulary Medication 0.5 ea 0900,1200 PO Last administered on 03/05/19 12:01; Admin Dose 0.5 EA; Start 03/04/19 at 18:30 Levalbuterol (Xopenex Neb) 0.31 mg Q4H RESP THERAPY HHN Last administered on 03/05/19 09:32; Admin Dose 0.31 MG; Start 03/04/19 at 18:30 Assessment/Plan Assessment/Plan (Daily) IMP: 1. Septic Shock 2/2 UTI--resolved 2. Right lower extremity cellulitis, resolved 3. Rheumatoid arthritis, on immunosuppressive therapy 4. Status post perforated bowel repair with colostomy RECS: 1. De-escalate abx 2. OOB/PT/OT JEANNINE PARDO MD March 05, 2019 13:20
[2019-03-05 14:00] VITALS: BP 140/71; PULSE 80; RESP 17
--- NOTE | 2019-03-05 15:44 | DS ---
Date/Time of Note Date/Time of Note DATE: 03/05/19 TIME: 15:42 Discharge Summary Admission/Discharge Info Admit Date/Time March 01, 2019 at 14:21 Discharge Date/Time Discharge Diagnosis Sepsis Adrenal insufficiency JUVE Rheumatoid arthritis Patient Condition: Stable Hx of Present Illness This is a 68-year-old female with a history of rheumatoid arthritis and fibromyalgia presents from halfway with hypotension and fever Patient underwent a colostomy for perforated viscus about a month ago. She was subsequently sent to a retirement facility where she has been in the meantime. About a week ago she was diagnosed with a UTI and seems to have been prescribed Levaquin. Symptoms persisted and then she was prescribed amoxicillin 2 days ago. She took a dose of this and seemed to have an allergic reaction. Still feels like she has a UTI. She then over the past day developed fever and hypotension and feeling very systemically ill. EMS was called to the halfway where indeed she was found to be hypotensive and febrile and tachycardic and transferred to the hospital. Since arrival here she has been started on antibiotics and vasopressors via PICC line. She is alert and mentating. Feels that she has a urinary tract infection Hospital Course This is a 68-year-old female with a history of rheumatoid arthritis on corticosteroids and immunosuppression and recent surgery for perforated bowel with colostomy as well as recent UTI who presented with septic shock She was started on broad spectrum antibiotics and given IV fluids. A central line was placed and vasopressors were administered. She was givne stress dose steroids. Over the coming days her renal function normalized, sepsis resolved and she had not symptoms. CT A/P was negative for acute pathology. All cultures were negative. Given clinical stability she was discharged back to her halfway with no changes to her home medicaitons Home Meds Reported Medications Diclofenac Sodium* (Voltaren* Gel) 1% -100 Gm Gel, 4 GM TOP TID, #1 TUB APPLY TO RIGHT AND LEFT KNEE 03/01/19 Venlafaxine Hcl* (Effexor XR*) 75 Mg Tab.er.24, 75 MG PO DAILY, TAB.SA 03/01/19 Cyclobenzaprine Hcl* (Cyclobenzaprine Hcl*) 10 Mg Tablet, 10 MG PO BID PRN for MUSCLE SPASMS, #60 TAB 03/01/19 Famotidine* (Famotidine*) 20 Mg Tablet, 20 MG PO BID, #60 TAB 03/01/19 Lactobacillus Combo No.11 (Probiotic) 1 Each Cap.sprink, 1 CAP PO DAILY, CAP 03/01/19 Amphet Wra-Rowqre-S-Amphet (Adderall) 5 Mg Tablet, 5 MG PO DAILY, TAB MAY TAKE ANOTHE 5MG PRN PER PT REQUEST 03/01/19 Acetaminophen* (Acetaminophen*) 650 Mg Tablet, 650 MG PO Q4 PRN for PAIN LEVEL 5 -7, #30 TAB 03/01/19 Tramadol Hcl* (Ultram*) 50 Mg Tablet, 50 MG PO Q6H PRN for PAIN LEVEL 5-7, TAB 03/01/19 Hydrocodone/Acetaminophen ([place] 5-325 Tablet) 1 Each Tablet, 1 EACH PO Q4 PRN for PAIN LEVEL 8-10, TAB 03/01/19 Magnesium Hydroxide* (Milk Of Magnesia*) 400 Mg/5 Ml Oral.susp, 30 ML PO DAILY PRN for CONSTIPATION, ML 03/01/19 Alprazolam* (Xanax*) 0.5 Mg Tab, 0.5 MG PO Q8H PRN for ANXIETY, TAB 03/01/19 Sennosides* (Senna Lax*) 8.6 Mg Tablet, 1 TAB PO DAILY, TAB 03/01/19 Heparin Sodium,Porcine/Pf (HEPARIN SOD 5,000 UNIT/ 0.5 ML) 5,000 Unit/0.5 Ml Vial, 5000 UNIT IJ Q8, VIAL 03/01/19 Oxycodone Hcl* (Oxycontin*) 20 Mg Tab.er.12h, 20 MG PO Q8 PRN for PAIN, TAB 03/01/19 Tolterodine Tartrate* (Detrol LA*) 4 Mg Cap.sr.24h, 4 MG PO DAILY, #30 CAP 03/01/19 Prednisone* (Prednisone*) 10 Mg Tab, 15 MG PO DAILY, TAB 03/01/19 Albuterol Sulfate* (Proair HFA*) 8.5 Gm Hfa.aer.ad, 2 PUFF INH Q4H PRN for WHEEZING AND SOB, #1 INHALER 03/01/19 Docusate Sodium* (Colace*) 100 Mg Capsule, 100 MG PO DAILY, #30 CAP 03/01/19 Primary Care Provider Not On Staff Doctor Pending Labs Laboratory Tests Test 03/04/19 17:47 Bedside Glucose 91 mg/dL (70-220) QI MCKEON MD March 05, 2019 15:44
[2019-03-05 16:30] VITALS: BP 180/107
[2019-03-05 16:50] VITALS: BP 198/112
== END 2019-03-05 17:30 | DRG 871 ==
LOC: E/R 07:53 → SUATTDRO 10:31 → ICU 14:21 → 6WM 03-02 22:55 → PP2 03-03 17:03
PROVIDERS: ADMIT Internal Medicine; ATTEND Internal Medicine
PROC: 02HV33Z Insertion of Infusion Device into Superior Vena Cava, Percutaneous Approach (ICD-10-PCS; principal; 2019-03-01)
PROC: B548ZZA Ultrasonography of Superior Vena Cava, Guidance (ICD-10-PCS; 2019-03-01)
DX: A41.9 Sepsis, unspecified organism (principal); R65.21 Severe sepsis with septic shock; N39.0 Urinary tract infection, site not specified; N17.9 Acute kidney failure, unspecified; L03.115 Cellulitis of right lower limb; E27.40 Unspecified adrenocortical insufficiency; J44.9 Chronic obstructive pulmonary disease, unspecified; M06.9 Rheumatoid arthritis, unspecified; M79.7 Fibromyalgia; K57.90 Diverticulosis of intestine, part unspecified, without perforation or abscess without bleeding; D25.9 Leiomyoma of uterus, unspecified; Z93.3 Colostomy status; Z87.440 Personal history of urinary (tract) infections
CPT/HCPCS: 36569; 71045; 74176; 76937; 80053; 81001; 82962; 83036; 83605; 84484; 85025; 85610; 85730; 87045; 87081; 87086; 93005; 93306; 94640; 94664; 96374; 96375; C1769; J0278; J0692; J1200; J1644; J1720; J2185; J2270; J2405; J3010; J3370; J7030; J7050